=== PATIENT | male | born 1950 | race Caucasian/White ===

== ENCOUNTER → 2022-08-30 10:46 | Outpatient (BNVA) | payer MEDICARE, OTHER, SELFPAY | PROVIDERS: PCP Internal Medicine; Visit Provider Nurse Practitioner Family | DX: R39.12 Poor urinary stream (principal); R97.20 Elevated prostate specific antigen [PSA] | CPT/HCPCS: 99202 ==

== ENCOUNTER 2022-09-02 11:27 | Outpatient (REF) | payer MEDICARE, OTHER, SELFPAY ==
--- NOTE | ~2022-09-02 | US_ITS ---
EXAMINATION: US RETROPERITONEAL COMPLETE (RENAL) CLINICAL INFORMATION: Elevated prostate-specific antigen. Poor urinary stream. COMPARISON: None available. TECHNIQUE: Real-time imaging of the kidneys and bladder. FINDINGS: RIGHT KIDNEY: 9.9 x 4.5 x 5.4 cm (SAG x AP x TRV). The kidney is normal in size, contour, and echogenicity. Renal cortical thickness is normal. No renal calculi or hydronephrosis. There is anechoic cyst in midpole measuring 1.1 x 1.2 x 1.1 cm. LEFT KIDNEY: 10.3 x 5.1 x 5.4 cm (SAG x AP x TRV). The kidney is normal in size, contour, and echogenicity. Renal cortical thickness is normal. No renal calculi or hydronephrosis. There is anechoic cyst lower pole measuring 4.3 x 3.7 x 3.5 cm. BLADDER: Well distended and normal. Bilateral ureteral jets are demonstrated. Prevoid bladder volume is 509 mL. Postvoid bladder volume is 39.1 mL. Enlarged prostate, volume 44.4 mL. US/US retroperitoneal comp IMPRESSION: Bilateral renal cysts. No echogenic stones or hydronephrosis. Small postvoid bladder volume.
== END 2022-09-02 11:28 | disposition home or self-care (01) ==
LOC: HO.HMGCX 11:27
PROVIDERS: PCP Internal Medicine; Visit Provider Nurse Practitioner Family
DX: R39.12 Poor urinary stream (principal); R97.20 Elevated prostate specific antigen [PSA]
CPT/HCPCS: 76770

== ENCOUNTER 2022-09-28 12:03 | Outpatient (REF) | payer MEDICARE, OTHER, SELFPAY ==
[2022-09-28 14:18] LABS: PSA,Total (Free>4and<10) 4.82 ng/mL (0.00-4.00)
[2022-09-30 12:53] LABS: Percent Free Prostate Spec Ag 24 % (calc) (>25); Prostate Specific Ag Total 4.1 ng/mL (< OR = 4.0)
== END 2022-09-28 12:04 | disposition home or self-care (01) ==
LOC: HO.10HDL 12:03
PROVIDERS: Visit Provider Nurse Practitioner Family
DX: R39.12 Poor urinary stream (principal); R97.20 Elevated prostate specific antigen [PSA]; Z12.5 Encounter for screening for malignant neoplasm of prostate
CPT/HCPCS: 36415; 84153; 84154

== ENCOUNTER → 2022-10-13 13:23 | Outpatient (BNVA) | payer MEDICARE, OTHER, SELFPAY | PROVIDERS: PCP Internal Medicine; Visit Provider Nurse Practitioner Family | DX: N28.1 Cyst of kidney, acquired (principal); N40.0 Benign prostatic hyperplasia without lower urinary tract symptoms; R39.12 Poor urinary stream; R97.20 Elevated prostate specific antigen [PSA]; Z79.82 Long term (current) use of aspirin | CPT/HCPCS: 99212 ==

== ENCOUNTER 2023-02-08 09:11 | Outpatient (REF) | payer MEDICARE, OTHER, SELFPAY ==
[2023-02-08 11:03] LABS: Prostate Specific Antigen 2.06 ng/mL (<0.05-4.0)
== END 2023-02-08 09:12 | disposition home or self-care (01) ==
LOC: HO.10HDL 09:11
PROVIDERS: Visit Provider Nurse Practitioner Family
DX: Z12.5 Encounter for screening for malignant neoplasm of prostate (principal); R97.20 Elevated prostate specific antigen [PSA]
CPT/HCPCS: 36415; 84153

== ENCOUNTER 2023-02-14 09:38 | Outpatient (AMB) | payer MEDICARE, OTHER, SELFPAY ==
--- NOTE | 2023-02-14 09:40 | A.OFFVIS_ITS ---
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 Rivera. He has a past medical history of coronary artery disease, GERD, hypercholesteremia, hypertension, and arthritis. He presents to the office today for follow-up. Of note, patient was previously seen approximately 4 months ago and was started on Finasteride. In discussion with the patient today reports to be doing and feeling well. Recent PSA results reviewed with the patient today... PSA's 07/28--4.3 09/25-- 4.1 Percent free 24 02/25--2.1 Previous workup has included retroperitoneal ultrasound that noted bilateral kidneys with no renal calculi or hydronephrosis. Bilateral renal cysts. The bladder is well distended and normal. Bilateral ureteral jets are demonstrated. Pre void bladder volume is 500 mL. Postvoid bladder volume is 40 mL. Prostate volume 44 mL. When asked patient denies any bothersome urinary issues or concerns at this time. He denies urinary urgency, urinary frequency, incontinence, nocturia, hematuria, dysuria, foul smelling urine, changes to urinary stream, flank pain, fever, and or chills. He is happy with his current voiding parameters. 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 He otherwise offers no other issues or concerns at this time. [facility] Medical History CAD (coronary artery disease) GERD (gastroesophageal reflux disease) High cholesterol Hypertension Arthritis Review of Systems Const Reports no additional complaints Eyes Reports no additional complaints ENT Reports no additional complaints Card Reports as per HPI Resp Reports no additional complaints GI Reports as per HPI Reports as per HPI Musc Reports as per HPI Neuro Reports no additional complaints Psych Reports no additional complaints Endo Reports no additional complaints Kash/Lymph Reports no additional complaints Aller/Immun Reports no additional complaints Physical Exam Const General: cooperative, healthy appearing, comfortable, no acute distress, well developed, alert and awake Orientation/consciousness: patient oriented x3 Limitations: no limitations HEENT Head: Yes normal to inspection, Yes normocephalic and Yes atraumatic Ears: hearing grossly normal bilaterally Eyes General: appearance normal, both eyes and all related structures Neck Neck: Yes normal visual inspection and Yes trachea midline Chest Chest palpation & inspection: normal inspection of the chest Resp Effort & Inspection: normal respiratory effort and able to speak in complete sentences Cardio Rate: regular rate GI Inspection: Yes normal to inspection Rectal Exam - Male: Yes deferred General: Yes no CVA tenderness Back/Spine/Pelvis Back: no CVA tenderness Skin General skin exam: no rashes or lesions noted Neuro General: patient oriented x3 Extrem General: Yes normal to inspection Psych Appearance: grossly normal and well kempt Mental Status: mental status grossly normal Speech and movement: Normal speech and movement present and Clear speech present Affect: normal affect Attitude: cooperative Thought process: Normal thought process present Thought content: Normal thought content present Insight: Good insight present (Psych) Judgement: Good judgement present (Psych) Results AMB Urinalysis, Automated UA Leukoctes 0 Susanne/uL Last Edit by [employer]raquel on 02/14/23 09:52 UA Nitrite Last Edit by [employer] Priscilla on 02/14/23 09:52 UA Urobilinogen 0.2 mg/dL Last Edit by [employer] Priscilla on 02/14/23 09:52 UA Protein 0 mg/dL Last Edit by [employer] on 02/14/23 09:52 UA pH 6.0 Last Edit by [employer] on 02/14/23 09:52 UA Blood 0 Alton/uL Last Edit by [employer] on 02/14/23 09:52 UA Specific [place] 1.025 Last Edit by [employer] on 02/14/23 09:52 UA Ketone Last Edit by [employer] on 02/14/23 09:52 UA Bilirubin 0 mg/dL Last Edit by [employer] on 02/14/23 09:52 UA Glucose 0 mg/dL Last Edit by Wilian Wells on 02/14/23 09:52 Results Reviewed Results Reviewed: Laboratory Last Values Urine pH (Auto) 6.0 02/14/23 09:43 Specific [place] (Auto) 1.025 02/14/23 09:43 Urine Protein (Auto) 0 mg/dL 02/14/23 09:43 Glucose (UA)(Auto) 0 mg/dL 02/14/23 09:43 Urine Blood (Auto) 0 [place]/uL 02/14/23 09:43 Urine Bilirubin (Auto) 0 mg/dL 02/14/23 09:43 Urine Urobilinogen (Auto) 0.2 mg/dL 02/14/23 09:43 Leukocyte Esterase (Auto) 0 Susanne/uL 02/14/23 09:43 Assessment & Plan Assessment & Plan (1) Enlarged prostate: Code(s): N40.0 - Benign prostatic hyperplasia without lower urinary tract symptoms (2) Elevated PSA: Code(s): R97.20 - Elevated prostate specific antigen [PSA] Plan In office urinalysis results reviewed with the patient today; as noted above. Recent PSA results reviewed with the patient today. Continue finasteride as discussed and prescribed. Patient denies any bothersome urinary issues or concerns at this time. PSA in 1 year. Follow-up in 1 year with lab to be completed prior; or sooner with any issues, concerns, and or questions. Orders: Orders Prostate Specific Antigen 364 Days N40.0 - Benign prostatic hyperplasia without lower urinary tract symptoms, R97.20 - Elevated prostate specific antigen [PSA] AMB Urinalysis Automated Today Z13.9 - Encounter for screening, unspecified Patient Instructions: The patient had an opportunity to ask questions regarding the treatment plan. All questions were answered. Physical exam, labs, and imaging were discussed and reviewed in detail. As well as risks, benefits, and discussion of treatment choices. No major barriers to understanding were identified. The patient expressed understanding and agreement with the above treatment plan. The patient was made aware they should contact our office by phone for worsening of their current condition, the appearance of new symptoms, or with any questions or concerns. Compliance is encouraged with any medications and follow up testing that is ordered. It is a privilege to be allowed the opportunity to participate in? your urological care.? Again, if you have any questions or concerns If you have any questions or concerns please do not hesitate to contact me. The office is [phone]. This note is constructed using voice recognition software. While every effort has been made to ensure accuracy tapper bit errors may have been included. Yours sincerely, DEWAYNE Gottlieb Coding Level of Care Code Est Pt Level 3 (98987) Diagnoses Enlarged prostate N40.0 Elevated PSA R97.20
== END 2023-02-14 10:17 | disposition home or self-care (01) ==
PROVIDERS: PCP Internal Medicine; Visit Provider Nurse Practitioner Family
DX: N40.0 Benign prostatic hyperplasia without lower urinary tract symptoms (principal); R97.20 Elevated prostate specific antigen [PSA]
CPT/HCPCS: 99213

== ENCOUNTER → 2023-02-14 09:38 | Outpatient (BNVA) | payer MEDICARE, OTHER, SELFPAY | PROVIDERS: Visit Provider Nurse Practitioner Family | DX: N40.0 Benign prostatic hyperplasia without lower urinary tract symptoms (principal); R97.20 Elevated prostate specific antigen [PSA] | CPT/HCPCS: 81003; 99212 ==

== ENCOUNTER 2023-06-12 15:51 | Outpatient (REF) | payer MEDICARE, OTHER, SELFPAY ==
--- NOTE | ~2023-06-12 | XR_ITS ---
EXAMINATION: XR CHEST CLINICAL INFORMATION: Shortness of breath, history of recent Covid 19. COMPARISON: None available. TECHNIQUE: 2 views of the chest were obtained. FINDINGS: Normal heart size. Mild central peribronchial wall thickening. Subtle streaky opacities in the left lower lobe. No focal consolidation. No pleural effusion or pneumothorax. No acute osseous findings. Visualized upper abdomen is within normal limits. XR/XR chest 2V IMPRESSION: 1. Mild central peribronchial wall thickening that could be seen with small airways disease. 2. Minimal streaky opacities in the retrocardiac region favored to represent subsegmental atelectasis or scarring.
== END 2023-06-12 15:52 | disposition home or self-care (01) ==
LOC: HO.HMGCX 15:51
PROVIDERS: PCP Internal Medicine; Visit Provider Internal Medicine
DX: R06.02 Shortness of breath (principal); Z86.16 Personal history of COVID-19
CPT/HCPCS: 71046

== ENCOUNTER 2024-02-12 11:48 | Outpatient (REF) | payer MEDICARE, OTHER, SELFPAY ==
[2024-02-12 14:10] LABS: Prostate Specific Antigen 1.34 ng/mL (<0.05-4.0)
== END 2024-02-12 11:49 | disposition home or self-care (01) ==
LOC: HO.10HDL 11:48
PROVIDERS: Visit Provider Nurse Practitioner Family
DX: Z12.5 Encounter for screening for malignant neoplasm of prostate (principal); N40.0 Benign prostatic hyperplasia without lower urinary tract symptoms; R97.20 Elevated prostate specific antigen [PSA]
CPT/HCPCS: 36415; 84153

== ENCOUNTER 2024-02-14 09:24 | Outpatient (AMB) | payer MEDICARE, OTHER, SELFPAY ==
--- NOTE | 2024-02-14 09:24 | A.OFFVIS_ITS ---
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- aspirin 81 mg PO DAILY atorvastatin 80 mg PO DAILY ezetimibe 10 mg PO DAILY finasteride 5 mg PO DAILY 90 days isosorbide mononitrate ER 30 mg PO DAILY nitroglycerin 0.4 mg sublingual omeprazole 20 mg PO BID HPI Comments Details: Wyatt is a pleasant 73-year-old male patient of Dr. Rivera. He has a past medical history of coronary artery disease, GERD, hypercholesteremia, hypertension, and arthritis. He presents to the office today for follow-up of his elevated PSA. In discussion with the patient today reports to be doing and feeling well. He reports since his last office visit here approximately 1 year ago has been doing and feeling well. He denies any bothersome urinary issues or concerns. Reports compliance with finasteride 5 mg daily. Recent PSA results reviewed with the patient today as noted and trended below. PSA's 07/28 4.3, 09/25 4.1 Percent free , 02/25 2.1, 02/26 1.3 Previous workup has included retroperitoneal ultrasound that noted bilateral kidneys with no renal calculi or hydronephrosis. Bilateral renal cysts. The bladder is well distended and normal. Bilateral ureteral jets are demonstrated. Pre void bladder volume is 500 mL. Postvoid bladder volume is 40 mL. Prostate volume 44 mL. When asked patient denies any bothersome urinary issues or concerns at this time. He denies urinary urgency, urinary frequency, incontinence, nocturia, hematuria, dysuria, foul smelling urine, changes to urinary stream, flank pain, fever, and or chills. He is happy with his current voiding parameters. 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 In office urinalysis results reviewed with the patient today. PVR 46 mL He also discusses his daughters TBI at the age of 1919 years old. He otherwise offers no other issues or concerns at this time. [facility], [facility] Medical History CAD (coronary artery disease) GERD (gastroesophageal reflux disease) High cholesterol Hypertension Arthritis Review of Systems Const Reports no additional complaints Eyes Reports no additional complaints ENT Reports no additional complaints Card Reports as per HPI Resp Reports no additional complaints GI Reports as per HPI Reports as per HPI Musc Reports as per HPI Neuro Reports no additional complaints Psych Reports no additional complaints Endo Reports no additional complaints Kash/Lymph Reports no additional complaints Aller/Immun Reports no additional complaints Physical Exam Const General: cooperative, healthy appearing, comfortable, no acute distress, well developed, alert and awake Orientation/consciousness: patient oriented x3 Limitations: no limitations HEENT Head: Yes normal to inspection, Yes normocephalic and Yes atraumatic Ears: hearing grossly normal bilaterally Eyes General: appearance normal, both eyes and all related structures Neck Neck: Yes normal visual inspection and Yes trachea midline Chest Chest palpation & inspection: normal inspection of the chest Resp Effort & Inspection: normal respiratory effort and able to speak in complete sentences Cardio Rate: regular rate GI Inspection: Yes normal to inspection Rectal Exam - Male: Yes deferred General: Yes no CVA tenderness Back/Spine/Pelvis Back: no CVA tenderness Skin General skin exam: no rashes or lesions noted Neuro General: patient oriented x3 Extrem General: Yes normal to inspection Psych Appearance: grossly normal and well kempt Mental Status: mental status grossly normal Speech and movement: Normal speech and movement present and Clear speech present Affect: normal affect Attitude: cooperative Thought process: Normal thought process present Thought content: Normal thought content present Insight: Good insight present (Psych) Judgement: Good judgement present (Psych) Office Procedures Post Void Residual Post Residual Void Post Void Residual (PVR): 46 [id number] Void Residual by ultrasound Results AMB Urinalysis, Automated UA Leukoctes 0 Susanne/uL Last Edit by Wilian Wells on 02/14/24 09:41 UA Nitrite Last Edit by Wilian Wells on 02/14/24 09:41 UA Urobilinogen 0.2 mg/dL Last Edit by Wilian Wells on 02/14/24 09:41 UA Protein 0 mg/dL Last Edit by Wilian Wells on 02/14/24 09:41 UA pH 6.0 Last Edit by Wilian Wells on 02/14/24 09:41 UA Blood 0 Alton/uL Last Edit by Wilian Chengraquel on 02/14/24 09:41 UA Specific [place] 1.010 Last Edit by [employer] Chengraquel on 02/14/24 09:41 UA Ketone Last Edit by Wilian Chengraquel on 02/14/24 09:41 UA Bilirubin 0 mg/dL Last Edit by Wilian Chengraquel on 02/14/24 09:41 UA Glucose 0 mg/dL Last Edit by Wilian Chengraquel on 02/14/24 09:41 Results Reviewed Results Reviewed: Laboratory Last Values Urine pH (Auto) 6.0 02/14/24 09:31 Specific [place] (Auto) 1.010 02/14/24 09:31 Urine Protein (Auto) 0 mg/dL 02/14/24 09:31 Glucose (UA)(Auto) 0 mg/dL 02/14/24 09:31 Urine Blood (Auto) 0 [place]/uL 02/14/24 09:31 Urine Bilirubin (Auto) 0 mg/dL 02/14/24 09:31 Urine Urobilinogen (Auto) 0.2 mg/dL 02/14/24 09:31 Leukocyte Esterase (Auto) 0 Susanne/uL 02/14/24 09:31 Assessment & Plan Assessment & Plan (1) Enlarged prostate: Code(s): N40.0 - Benign prostatic hyperplasia without lower urinary tract symptoms Category: Medical (2) Elevated PSA: Code(s): R97.20 - Elevated prostate specific antigen [PSA] Category: Medical Plan In office urinalysis results reviewed with the patient today; as noted above. PVR 46 mL Recent PSA results reviewed with the patient today. Continue finasteride as discussed and prescribed; discussed decreasing finasteride to 3 times per week Patient denies any bothersome urinary issues or concerns at this time. He is happy with his current voiding parameters. PSA in 1 year. Follow-up in 1 year with lab to be completed prior; or sooner with any issues, concerns, and or questions. Orders: Orders AMB Urinalysis Automated Today Z13.9 - Encounter for screening, unspecified AMB Post Void Residual by ultrasound Today R39.12 - Poor urinary stream Prostate Specific Antigen 1 Year N40.0 - Benign prostatic hyperplasia without lower urinary tract symptoms, R97.20 - Elevated prostate specific antigen [PSA] Medications: Changed From finasteride 5 mg PO DAILY 90 days 90 tabs 2RF N13.8 - Other obstructive and reflux uropathy, N40.1 - Benign prostatic hyperplasia with lower urinary tract symptoms, R33.9 - Retention of urine, unspecified To finasteride 5 mg PO .MWF 90 days 45 tabs 2RF N13.8 - Other obstructive and reflux uropathy, N40.1 - Benign prostatic hyperplasia with lower urinary tract symptoms, R33.9 - Retention of urine, unspecified Patient Instructions: The patient had an opportunity to ask questions regarding the treatment plan. All questions were answered. Physical exam, labs, and imaging were discussed and reviewed in detail. As well as risks, benefits, and discussion of treatment choices. No major barriers to understanding were identified. The patient expressed understanding and agreement with the above treatment plan. The patient was made aware they should contact our office by phone for worsening of their current condition, the appearance of new symptoms, or with any questions or concerns. Compliance is encouraged with any medications and follow up testing that is ordered. It is a privilege to be allowed the opportunity to participate in? your urological care.? Again, if you have any questions or concerns If you have any questions or concerns please do not hesitate to contact me. The office is [phone]. This note is constructed using voice recognition software. While every effort has been made to ensure accuracy hand spring repairer helper errors may have been included. Yours sincerely, DEWAYNE Gottlieb Coding Level of Care Code Est Pt Level 3 (87660) Diagnoses Enlarged prostate N40.0 Elevated PSA R97.20 CPT Codes Post Residual Void - PVR CPT Code: 12413-Dgjz Void Residual by ultrasound ([id number])
== END 2024-02-14 10:30 | disposition home or self-care (01) ==
PROVIDERS: PCP Internal Medicine; Visit Provider Nurse Practitioner Family
DX: N40.0 Benign prostatic hyperplasia without lower urinary tract symptoms (principal); R97.20 Elevated prostate specific antigen [PSA]; Z13.9 Encounter for screening, unspecified
CPT/HCPCS: 99213

== ENCOUNTER → 2024-02-14 09:24 | Outpatient (BNVA) | payer MEDICARE, OTHER, SELFPAY | PROVIDERS: PCP Internal Medicine; Visit Provider Nurse Practitioner Family | DX: R97.20 Elevated prostate specific antigen [PSA] (principal); N40.1 Benign prostatic hyperplasia with lower urinary tract symptoms; R39.12 Poor urinary stream; N13.8 Other obstructive and reflux uropathy; R33.8 Other retention of urine | CPT/HCPCS: 51798; 81003; 99212 ==

== ENCOUNTER 2024-06-10 14:04 | Outpatient (REF) | payer MEDICARE, OTHER, SELFPAY ==
--- NOTE | ~2024-06-10 | XR_ITS ---
EXAMINATION: XR CHEST 2 VIEWS HISTORY: COUGH, R/O PNA COMPARISON: Comparison is made with the prior examination dated 06/12/2023. FINDINGS: PA and lateral views of the chest are submitted. The lungs are expanded and clear. There is no pleural effusion, pneumothorax, or pulmonary vascular congestion. The heart is normal in size. The bones are intact. XR/XR chest 2V IMPRESSION: No acute cardiopulmonary abnormality. Electronically signed by: Matthew Woodward MD 06/10/2024 03:10 PM MARILIN
== END 2024-06-10 14:05 | disposition home or self-care (01) ==
LOC: HO.HMGCX 14:04
PROVIDERS: PCP Internal Medicine; Visit Provider Internal Medicine
DX: R05.9 Cough, unspecified (principal)
CPT/HCPCS: 71046

== ENCOUNTER → 2024-06-10 14:10 | Outpatient (BNV) | payer MEDICARE, OTHER, SELFPAY | PROVIDERS: PCP Internal Medicine; Visit Provider Radiology Diagnostic Radiology | DX: R05.9 Cough, unspecified (principal) | CPT/HCPCS: 71046 ==

== ENCOUNTER 2024-08-08 09:49 | Outpatient (REF) | payer MEDICARE, OTHER, SELFPAY ==
--- NOTE | ~2024-08-08 | CT_ITS ---
CLINICAL HISTORY: STREAKY OPACITY LLL CT chest without contrast Comparison: None Findings: The heart is normal size. Moderate to heavy coronary calcium. Nonaneurysmal aorta. No adenopathy. Decompressed esophagus. Mild gynecomastia. No axillary adenopathy or thyroid nodules. The visualized thyroid and mediastinum are unremarkable. The lungs are clear. Mild basilar hypoventilatory change. 1.3 cm cysts in the left hepatic lobe. Upper abdomen is otherwise unremarkable. The bones are intact. IMPRESSION: 1. No acute cardiopulmonary disease. 2. Moderate to heavy coronary calcium. This document has been electronically signed by: Augusta Randhawa MD on 08/09/2024 08:46:54
== END 2024-08-08 09:50 | disposition home or self-care (01) ==
LOC: HO.CT 09:49
PROVIDERS: PCP Internal Medicine; Visit Provider Internal Medicine
DX: R91.8 Other nonspecific abnormal finding of lung field (principal)
CPT/HCPCS: 71250

== ENCOUNTER → 2024-08-08 10:00 | Outpatient (BNV) | payer MEDICARE, OTHER, SELFPAY | PROVIDERS: PCP Internal Medicine; Visit Provider Radiology Diagnostic Radiology | DX: I25.84 Coronary atherosclerosis due to calcified coronary lesion (principal) | CPT/HCPCS: 71250 ==

== ENCOUNTER 2024-11-26 13:26 | Outpatient (AMB) | payer MEDICARE, OTHER, SELFPAY ==
--- NOTE | 2024-11-26 13:31 | A.OFFPC_ITS ---
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: No Accompanied by: Self / Same As Patient Allergies acetaminophen (From Tylenol PM) Allergy (Mild, Verified 11/26/24 13:58) Unknown diphenhydramine (From Tylenol PM) Allergy (Mild, Verified 11/26/24 13:58) Unknown Tobacco use date assessed: 11/26/24 Fall risk assessment: No Falls in past year Last assessed Fall Risk: 11/26/24 Dental Screening Dental Screen Date: 11/26/24 Did you have a dental visit in the last 12 months?: Yes Did you have a dental problem in the last 6 months where you did not have access to dental care?: No Was dental information given to patient?: Patient has dentist [facility] Medical History (Updated 11/26/24 @ 14:28 by James Grijalva MD) CAD (coronary artery disease) GERD (gastroesophageal reflux disease) High cholesterol Hypertension Arthritis Surgical History History of esophagogastroduodenoscopy (EGD) (~02/10/14) History of colonoscopy (~02/10/14) Family History (Updated 11/26/24 @ 13:32 by VAUGHN Marquis) Father No problems noted. Mother No problems noted. Social History (Updated 11/26/24 @ 14:00 by VAUGHN Marquis) Housing: House Alcohol intake: current Alcohol intake frequency: holidays/special occasions only Patient Tobacco Use Status: Never used Tobacco service: No Current occupational status: retired Cognitive needs: No Hearing needs: No Vision needs: Yes (rx glasses) Questionnaire PHQ-9 Over the last 2 weeks, how often have you been bothered by any of the following problems? 1. Little interest or pleasure in doing things: not at all 2. Feeling down, depressed, or hopeless: not at all 3. Trouble falling or staying asleep, or sleeping too much: not at all 4. Feeling tired or having little energy: not at all 5. Poor appetite or overeating: not at all 6. Feeling bad about yourself - or that you are a failure or have let yourself or your family down: not at all 7. Trouble concentrating on things, such as reading the newspaper or watching television: not at all 8. Moving or speaking so slowly that other people could have noticed. Or the opposite - being so fidgety or restless that you have been moving around a lot more than usual: not at all 9. Thoughts that you would be better off or of hurting yourself in some way: not at all Total score: 0 Source: Developed by Drs. Matthew Carr, Sierra Oswald, Kristian Chester and colleagues, with an educational jennifer from [employer]. Thrive Questionnaire Date Thrive assessed: 11/26/24 I am a: Patient What is your living situation today?: I have a steady place to live Within the past 12 months, did the food you bought not last and you didn't have the money to get more?: Never true Within the past 12 months, did you worry whether your food would run out before you got money to buy more?: Never true Do you have trouble paying for medicines?: No Do you have trouble getting transportation to medical appointments?: No Do you have trouble paying your heating and electricity bill?: No Do you have trouble taking care of your child, family member or friend?: No Do you have trouble with day-to-day activities such as bathing, preparing meals, shopping, managing finances, etc.?: No Are you currently unemployed and looking for a job?: No Are you interested in more education?: No Please select the resources that you would like help with: None THRIVE Score: 0 AUDIT C Alcohol Use Questionnaire (AUDIT-C) 1. How often do you have a drink containing alcohol?: Monthly or less 2. How many drinks containing alcohol do you have on a typical day when you are drinking?: 1 or 2 3. How often do you have six or more drinks on one occasion?: Never Total Score: 1 OLGA-7 AMB Questionnaire OLAG-7 Date OLGA - 7 assessed: 11/26/24 Feeling nervous, anxious, or on edge: 0 = Not at all Not being able to stop or control worryin = Not at all Worrying too much about different things: 0 = Not at all Trouble relaxin = Not at all Being so restless that it is hard to sit still: 0 = Not at all Becoming easily annoyed or irritable: 0 = Not at all Feeling afraid as if something awful might happen: 0 = Not at all Total OLGA-7 score (0-4 normal; 5-9 mild; 10-14 moderate; 15-21 severe): 0 Source: Developed by Drs. Matthew Carr, Sierra Oswald, Kristian Chester and colleagues, with an educational jennifer from [employer]. Physical exam (Primary Care) Vital Signs: Last Vital Signs Temp 98.1 F 11/26/24 13:55 Pulse 74 11/26/24 13:55 Resp 16 11/26/24 13:55 BP 152/84 H 11/26/24 13:55 Pulse Ox 98 11/26/24 13:55 Oxygen Delivery Method Room Air 11/26/24 13:55 BMI result Body Mass Index 30.6 Tobacco/Smoking Status: Tobacco use Status Tobacco use date assessed 11/26/24 11/26/24 13:32 Patient Tobacco Use Status Never used Tobacco 11/26/24 14:00 PHQ-9: PHQ-9 Score PHQ-9: Total score 0 11/26/24 14:00 Thrive Assessment: Date of Thrive Assessment Date Thrive assessed 11/26/24 11/26/24 13:32 Coding Level of Care Code New Pt Level 4 (33517) Complex EM visit Add On G2211 Diagnoses Mastitis, left, acute N61.0 Hypertension I10 Assessment & Plan Assessment & Plan (1) Mastitis, left, acute: Code(s): N61.0 - Mastitis without abscess Plan: Will get diagnostic us and mammogram. (2) Hypertension: Code(s): I10 - Essential (primary) hypertension Category: Medical Plan: BP in range. Continue current meds Plan History of Present Illness - The patient is a 74-year-old male presenting with evaluation of a lump behind the ear and breast pain. - The lump behind the ear has been present for approximately a year and a half, initially noted as smaller and dismissed by a previous physician. - The lump has grown over time and is described as solid upon examination, diagnosed as a sebaceous cyst. - The patient reports mild pain in the left breast, particularly when pressure is applied to the nipple, with no associated discharge. - The breast pain has been present for 8 months to a year, with no palpable masses detected during examination. - The patient has a history of heart problems and has been under the care of a clinical biostatistician for 20 years, with three different incidents reported. - The patient experienced COVID-19 in June, followed by a respiratory virus and recurrent pneumonia, leading to breathing difficulties that have since improved. 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 - Preventative care includes a planned colonoscopy, with a previous appointment canceled due to illness. 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 - Exercise: Increased physical activity has contributed to recent weight loss. Review of Systems - Integumentary: Reports lump behind ear, denies any associated symptoms. - Breast: Reports mild pain in left breast, denies nipple discharge. - Cardiovascular: Reports history of heart problems, denies current symptoms. - Respiratory: Reports past breathing difficulties due to pneumonia, currently improved. Physical Exam General: Cooperative and healthy appearing Nutritional Appearance: Well nourished Orientation/consciousness: Patient oriented x3 Limitations: No limitations Head: Normal to inspection General: Appearance normal, both eyes and all related structures Neck: Normal visual inspection Chest: Normal palpation of entire chest wall Respiratory: Residual breathing problem improving after recurring pneumonia. ormal respiratory effort Neurology: Patient oriented x3. Results Plan 1. Sebaceous Cyst - Plan: Observation recommended, surgical removal offered if desired. 2. Breast Pain - Plan: Ultrasound and mammogram of left breast recommended to rule out malignancy. 3. Heart Problems - Plan: Continue follow-up with clinical biostatistician, no new interventions discussed. 4. History Of Pneumonia - Plan: No active treatment required as symptoms have resolved. 5. Preventative Care: Colonoscopy - Plan: Schedule colonoscopy, previous appointment canceled due to illness. Discussion Notes I discussed with the patient that the lump behind the ear is a sebaceous cyst and is not serious, offering the option of surgical removal if desired. We also discussed the importance of ruling out breast cancer in males, recommending an ultrasound and mammogram for the left breast. I advised continuing follow-up with the clinical biostatistician for heart problems and noted that no active treatment is needed for the resolved pneumonia. We agreed to schedule a colonoscopy as part of preventative care. Patient Instructions - Monitor the lump behind the ear for any changes. - Schedule and attend the recommended ultrasound and mammogram for the left breast. - Continue regular follow-ups with your clinical biostatistician. - Schedule a colonoscopy as discussed. Orders: Orders MM diagnostic mammo BI Today N61.0 - Mastitis without abscess Liver Panel Today I10 - Essential (primary) hypertension US breast LT limited Today N61.0 - Mastitis without abscess Basic Metabolic Panel Today I10 - Essential (primary) hypertension Complete Blood Count no Diff Today I10 - Essential (primary) hypertension Lipid Panel Today I10 - Essential (primary) hypertension Thyroid Stimulating Hormone Today I10 - Essential (primary) hypertension UA and rflx microscopic Today I10 - Essential (primary) hypertension Prostate Specific Antigen Scr Today I10 - Essential (primary) hypertension
[2024-11-26 13:55] VITALS: BP 152/84; PULSE 74; RESP 16; TEMP 36.7; O2SAT 98; BMI 30.6
--- OUTSIDE RECORDS SUMMARY | 2024-11-26 15:30 | XMS_ITS | Patient Health Record ---
Author Organization [facility] Address [address] [place] [address] Care Team Providers Care Supervisor Esters And Emulsifiers Name Role Phone Dean Rivera MD Primary Care Provider UnavailMatthew Spence [phone] Allergies Allergen (clinical drug ingredient) Drug/Non Drug Allergy documented on EMR Reaction Allergy Type Onset Date Status Tylenol/Codeine #3 Unknown Drug Allergy Active Reason For Referral No Information Medications Medication SIG (Take, Route, Frequency, Duration) Notes Start Date End Date Status Lisinopril 2.5 MG 1 tablet Orally Once a day 01/14/2014 Active Aspir-81 81 MG 1 tablet Orally Once a day 01/14/2014 Active ZyrTEC Active Sulindac 150 MG 1 tablet with food O rally QD as needed Active Atorvastatin Calcium 80 MG 1 tablet Oral ly Once a day Active Omeprazole 20 MG 1 capsule Orally twi ce a day for 90 Active Omeprazole 20 TAKE 1 CAPSULE BY [facility] EVERY MORNING for 90 Active Brilinta 90 MG 1 tablet Orally Active Immunizations Vaccine Route Administration Date Status Comme nts Influenza Unknown 03/05/2019 Administered Problems Problem Type SNOMED Code ICD Code Onset Dates Problem Status W/U Status Risk Notes Problem 187736263 Encounter for screening for malignant neoplasm of colon (Z12.11) Active confirmed Problem 597943805 History of adenomatous polyp of colon (Z86.010) Active confirmed Problem 692682729 Gastroesophageal reflux disease with esophagitis (K21.0) Active confirmed Problem 098515564 Barretts esophag us without dysplasia (K22.70) Active confirmed Problem 477018352 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 [place] [address] [id number] BEVERLY OROSCO Self - patient is the insured Medical (General) History Medical History History ICD Code Denies UT,DM,CVA,Lung disease,renal dise ase Coronary artery disease--2 stents placed in 2004 Hypertension Negative screening colonoscopy in 01/[address] Longoria Hyperlipidemia GERD--EGD in 02/2014-erosive esophagitis, small area of Camejo's without dysplasia, small HH Tubular adenoma removed in 02/2014 with s creening colonoscopy UT in 06/2018 with placement of a single stent Surgical History Surgery Date(Month/Year) Right rotator cuff Left knee arthroscopy Lower back--spinal stenosis
== END 2024-11-26 14:24 | disposition home or self-care (01) ==
LOC: HO.HMCSH 13:26
PROVIDERS: PCP Internal Medicine; Visit Provider Internal Medicine
DX: N61.0 Mastitis without abscess (principal); I10 Essential (primary) hypertension

== ENCOUNTER → 2024-11-26 13:26 | Outpatient (BNVA) | payer MEDICARE, OTHER, SELFPAY | PROVIDERS: PCP Internal Medicine; Visit Provider Internal Medicine | DX: N61.0 Mastitis without abscess (principal); I10 Essential (primary) hypertension | CPT/HCPCS: 99202 ==

== ENCOUNTER 2025-01-06 09:13 | Outpatient (REF) | payer MEDICARE, OTHER, SELFPAY ==
--- NOTE | ~2025-01-06 | MM_ITS ---
EXAMINATIONS: 1. MM DIAGNOSTIC DIGITAL BREAST TOMOSYNTHESIS, BILATERAL 2. Targeted ultrasound of the left breast CLINICAL INFORMATION: - tenderness over the nipple area, no lump palpable; Additional Notes/Special Instructions-tenderness over the nipple area, no lump palpable; Reason for Exam-N61.0 - Mastitis without abscess - According to the patient, left breast pain for over one year without significant changes. COMPARISON: Chest CT on August 08, 2024. TECHNIQUE: Digital breast tomosynthesis is performed in both the craniocaudal and mediolateral oblique views along with computer-aided detection (CAD). Synthesized 2D images are generated from the tomosynthesis. Triangular skin marker was placed at the location of the pain over the left nipple. FINDINGS: BREAST COMPOSITION: There are scattered areas of fibroglandular density (ACR BI-RADS breast composition Category b). RIGHT BREAST: Retroareolar density typical of gynecomastia. No significant masses, suspicious calcifications or other abnormalities are seen. LEFT BREAST: Retroareolar density typical of gynecomastia, minimally more prominent than contralateral side. No significant masses, suspicious calcifications or other abnormalities are seen. Targeted ultrasound of the left breast was performed at the location of the pain. Survey throughout the nipple area and retroareolar region shows findings typical of gynecomastia. No fluid collections, suspicious findings or abnormal vascularity on the color Doppler evaluation seen. MM/MM tomosynthesis diagnostic BI IMPRESSION: RIGHT BREAST: Findings typical of gynecomastia. Benign, no mammographic evidence of malignancy. LEFT BREAST: Findings typical of gynecomastia, minimally more prominent than the contralateral side. No fluid collection or abnormal vascularity seen on the ultrasound evaluation of the area of concern. Benign, no evidence of malignancy. Clinical follow-up is recommended. ASSESSMENT: BI-RADS 2 - Benign Findings RECOMMENDATION: Clinical management Results were provided to the patient at time of visit by the technologist. Electronically signed by: Gautam Cortes MD 01/06/2025 11:21 AM EDT
--- OUTSIDE RECORDS SUMMARY | 2025-01-06 09:37 | XMS_ITS | Patient Health Record ---
Author Organization [facility] Address [address] [place] [address] Care Team Providers Care Pari Mutuel Ticket Cashier Name Role Phone TANIA TUTTLE Primary Care Provider Matthew Romero [phone] Allergies Allergen (clinical drug ingredient) Drug/Non Drug [...] Active Omeprazole 20 TAKE 1 CAPSULE BY [facility] EVERY MORNING for 90 Active Brilinta 90 MG 1 tablet Orally Active Immunizations Vaccine Route Administration Date Status Comme nts Influenza Unknown 03/05/2019 Administered Problems Problem Type SNOMED Code ICD Code Onset Dates Problem Status W/U Status Risk Notes Problem 807029179 Encounter for screening for malignant neoplasm of colon (Z12.11) Active confirmed Problem 724604504 History of adenomatous polyp of colon (Z86.010) Active confirmed Problem 424785997 Gastroesophageal reflux disease with esophagitis (K21.0) Active confirmed Problem 734993463 Barretts esophag us without dysplasia (K22.70) Active confirmed Problem 377063097 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 Plan Of Treatment Future Test Test Name Order Date UPPER GI ENDOSCOPY 01/14/2014 COLONOSCOPY 01/14/2014 UPPER GI ENDOSCOPY 04/12/2019 COLONOSCOPY 04/12/2019 Next Appt Details Provider Name:Matthew Sanches , 03/07/2025 02:40:00 PM, [address] [facility], [address], [place], [address], Insurance Providers Payer Name Payer Address Payer Phone Subscriber Number Group Number Insured Name Patient Relationship to Insured Coverage Start Date Coverage End Date MEDICARE OF [facility] [address] [place] [address] [id number] BEVERLY OROSCO Self - patient is the insured [employer] [address] [place] [phone] [id number] BEVERLY OROSCO Self - patient is the insured Medical (General) History Medical History History ICD Code Denies HI,DM,CVA,Lung disease,renal dise ase Coronary artery disease--2 stents placed in 2004 Hypertension Negative screening colonoscopy in 01/[address] Longoria Hyperlipidemia GERD--EGD in 02/2014-erosive esophagitis, small area of Camejo's without dysplasia, small HH Tubular adenoma removed in 02/2014 with s creening colonoscopy HI in 06/2018 with placement of a single stent Surgical History Surgery Date(Month/Year) Right rotator cuff Left knee arthroscopy Lower back--spinal stenosis
--- OUTSIDE RECORDS SUMMARY | 2025-01-06 09:37 | XMS_ITS | Encounter Summary ---
Author Organization [facility] Address [address] [place] [address] Phone Care Team Providers Care Supervisor Decorating Name Role Phone Dean Rivera MD Primary Care Provider [phone] Uli Mcgraw MD Unavailable [phone] James Grijalva MD Primary Care Provid er Encounter Details Date Type Department Care Team (Late st Contact Info) Description 07/22/2021 Procedure Pass Echo Lab [address] [place] [address] Social History Tobacco Use Types Packs/Day Years Used Date Smoking Tobacco: Never Smokeless Tobacco: Never Alcohol Use Standard Drinks/Week Comments Yes 0 (1 standard drink = 0.6 oz pur e alcohol) Sex and Gender Information Value Date Recorded Sex Assigned at Not on file Legal Sex Male 7:47 PM EST Gender Identity Not on file Sexual Orientation Not on file documented as of this encounter Plan of Treatment Not on file documented as of this encounter Visit Diagnoses Not on filedocumented in this encounter Care Teams Supervisor Decorating Relationship Specialty Start Date End Date Dean Rivera MD [address] [place] [address] PCP - General 03/23/17 12/10/24 James Grijalva MD [address] [place] [address] Drive [address] [place] [address] PCP - General Internal Medicine 12/11/24 Uli Mcgraw MD [address] [place] [address] [email or web address] Historical LMR Provider 03/23/17 documented as of this encounter Additional Source Comments The information contained in this document represents components of the legal health record. It is not the complete legal health record.[facility]
== END 2025-01-06 09:14 | disposition home or self-care (01) ==
LOC: HO.MAMMO 09:13
PROVIDERS: PCP Internal Medicine; Visit Provider Internal Medicine
DX: N61.0 Mastitis without abscess (principal)
CPT/HCPCS: 76642; 77062; 77066

== ENCOUNTER → 2025-01-06 09:30 | Outpatient (BNV) | payer MEDICARE, OTHER, SELFPAY | PROVIDERS: PCP Internal Medicine; Visit Provider Radiology Body Imaging | DX: N62 Hypertrophy of breast (principal) | CPT/HCPCS: 76642; 77066; G0279 ==

== ENCOUNTER 2025-02-04 08:52 | Outpatient (REF) | payer MEDICARE, OTHER, SELFPAY ==
--- OUTSIDE RECORDS SUMMARY | 2025-02-04 09:37 | XMS_ITS | Encounter Summary ---
Author Organization [facility] Address [address] [place] [address] [address] [place] [address] Phone Care Team Providers Care Fitness Leader Name Role Phone Uli Mcgraw MD Unavailable [phone] James Grijalva MD Primary Care Provid er Reason for Referral * Consultation (Within 2 weeks) - New Request Specialty Diagnoses / Procedures Referred By Mango boss Referred To Contact Pulmonary Disease Elvi Espitia DNP [address] [place] [address] Phone: tel: fax: [email or web address] [facility] [address] [place] [address] Phone: tel: Referral ID Status Reason Start Date Expiration Date V isits Requested Visits Authorized [id number] New Request 01/27/2025 01/27/2026 1 1 Encounter Details Date Type Department Care Team (Late st Contact Info) Description 01/27/2025 Orders Only [facility] [address], [address] [place] [address] Elvi Espitia DNP [address] [place] [address] Social History Tobacco Use Types Packs/Day Years Used Date Smoking Tobacco: Never Smokeless Tobacco: Never Alcohol Use Standard Drinks/Week Comments Yes 0 (1 standard drink = 0.6 oz pur e alcohol) Education Answer Date Recorded Are you interested in more education? Not on jaiden e 09/29/2022 Are you concerned about learning? Not on file 09/29/2022 No 09/29/2022 No 09/29/2022 Digital Access Answer Date Recorded No 10/29/2022 No 10/29/2022 Reliable internet access at home? Not on file 10/29/2022 Device with a working camera? Not on file Sex and Gender Information Value Date Recorded Sex Assigned at Not on file Legal Sex Male 7:47 PM EST Gender Identity Not on file Sexual Orientation Not on file documented as of this encounter Plan of Treatment Upcoming Encounters Date Type Department Care Team (Late st Contact Info) Description 03/03/2025 9:00 AM EDT Office Visit [facility] [address] [place] [address] [place] [address], [address] [place] [address] Elvi Espitia, [address] [address] 05/20/2025 1:15 PM EST Office Visit [facility] [address], [address] [place] [address] Hill Navarrete MD [address] [place] [address] Scheduled Referrals Name Type Priority Associated Diagnoses Order Schedule Ambulatory referral to [facility] Pulmonology Outpatient Referral Routine Ordered: 01/27/2025 documented as of this encounter Visit Diagnoses Not on filedocumented in this encounter Care Teams Fitness Leader Relationship Specialty Start Date End Date James Grijalva MD [address] [place] [address] PCP - General Internal Medicine 12/11/24 Uli Mcgraw MD [address] [address] Historical LMR Provider 03/23/17 documented as of this encounter Additional Source Comments The information contained in this document represents components of the legal health record. It is not the complete legal health record.[facility]
--- OUTSIDE RECORDS SUMMARY | 2025-02-04 09:37 | XMS_ITS | Encounter Summary ---
Author Organization [facility] Address [address] [place] [address] [place] [address] Phone Care Team Providers Care Pe Teacher Name Role Phone Dean Rivera MD Primary Care Provider [phone] Uli Mcgraw MD Unavailable [phone] James Grijalva MD Primary Care Provid er Encounter Details Date Type Department Care Team (Late st Contact Info) Description 07/22/2021 Procedure Pass Echo Lab [facility] [address] [address] Social History Tobacco Use Types Packs/Day Years [...] Description 03/03/2025 9:00 AM EDT Office Visit [facility] [address], [address] [place] [address] Elvi Espitia, [address] [address] 05/20/2025 1:15 PM EST Office Visit [facility] [address], [address] [place] [address] Hill Navarrete MD [address] [facility], [address] [address] [email or web address] documented as of this encounter Visit Diagnoses Not on filedocumented in this encounter Care Teams Pe Teacher Relationship Specialty Start Date End Date Dean Rivera MD [address] [place] [address] PCP - General 03/23/17 12/10/24 James Grijalva MD [address] [place] [address] PCP - General Internal Medicine 12/11/24 Uli Mcgraw MD [address] [place] [address] [email or web address] Historical LMR Provider 03/23/17 documented as of this encounter Additional Source Comments The information contained in this document represents components of the legal health record. It is not the complete legal health record.[facility]
--- OUTSIDE RECORDS SUMMARY | 2025-02-04 09:37 | XMS_ITS | Encounter Summary ---
Author Organization [facility] Address [address] [place] [address] Phone Care Team Providers Care Cra Name Role Phone Dean Rivera MD Primary Care Provider [phone] Uli Mcgraw MD Unavailable [phone] James Grijalva MD Primary Care Provid er Encounter Details Date Type Department Care Team (Late Contact Info) Description 06/26/2024 Procedure Pass Echo Lab [address] [place] [address] Social History Tobacco Use Types Packs/Day Years [...] Encounters Date Type Department Care Team (Late Contact Info) Description 03/03/2025 9:00 AM EDT Office Visit [facility] [address], [address] [place] [address] Elvi Espitia, MADDY [address] [place] [address] 05/20/2025 1:15 PM EST Office Visit [facility] [address], [address] [place] [address] Hill Navarrete MD [address] [facility], [address] [place] [address] [email or web address] documented as of this encounter Visit Diagnoses Not on filedocumented in this encounter Care Teams Cra Relationship Specialty Start Date End Date Dean Rivera MD [address] [place] [address] PCP - General 03/23/17 12/10/24 James Grijalva MD [address] [place] [address] PCP - General Internal Medicine 12/11/24 Uli Mcgraw MD [address] [place] [address] [email or web address] Historical LMR Provider 03/23/17 documented as of this encounter Additional Source Comments The information contained in this document represents components of the legal health record. It is not the complete legal health record.[facility]
--- OUTSIDE RECORDS SUMMARY | 2025-02-04 09:37 | XMS_ITS | Encounter Summary ---
Author Organization [facility] Address [address] [place] [address] [place] [address] Phone Care Team Providers Care Rotary Driller Prospecting Name Role Phone Dean Rivera MD Primary Care Provider [phone] Dean Rivera MD Unavailable [phone] Uli Mcgraw MD Unavailable [phone] James Grijalva MD Primary Care Provid er Encounter Details Date Type Department Care Team (Latest Contact Info) Description 04/07/2017 Transcribe Orders [facility] [address] [place] [address] Uli Mcgraw MD [address] [place] [address] Pure hypercholesterolemia (Primary Dx) Social History Tobacco Use Types Packs/Day Years Used Date Smoking Tobacco: Never Assessed Sex and Gender Information Value Date Recorded Sex Assigned at Not on file Legal Sex Male 7:47 PM EST Gender Identity Not on file Sexual Orientation Not on file documented as of this encounter Plan of Treatment Upcoming Encounters Date Type Department Care Team (Late st Contact Info) Description 03/03/2025 9:00 AM EDT Office Visit [facility] [address], [address] [place] [address] Elvi Espitia, [facility] [address] [place] [address] 05/20/2025 1:15 PM EST Office Visit [facility] [address] [facility] 3rd Floor, [address] [place] [address] Hill Navarrete MD [facility] [address] [place] [address] [email or web address] documented as of this encounter Results * LFTs (hepatic panel) (04/07/2017 8:40 AM EDT) ALKALINE PHOSPHATASE 50 39 - 117 U/L [facility] TOTAL BILIRUBIN 0.5 0 - 1.2 mg/dL [facility] DIRECT BILIRUBIN <0.2 0 - 0.3 mg/dL [facility] Bilirubin (Indirect) NOT CALCULATED 0 - 1.5 mg/dL [facility] AST 25 0 - 37 U/L [facility] ALT 22 0 - 40 U/L [facility] TOTAL PROTEIN 6.6 6.5 - 8.0 g/dL [facility] ALBUMIN 4.2 3.9 - 4.8 g/dL [facility] GLOBULIN 2.4 1 - 4.8 g/dL [facility] A/G Ratio 1.75 1.00 - 4.80 RATIO [facility] Blood 04/07/2017 8:40 AM EDT 04/07/2017 8:42 AM EDT us Uli Mcgraw MD LAB BLOOD ORDERABLES Edited Res ult - Final [facility] [address] [place] [address] * (ABNORMAL) Lipid panel (04/07/2017 8:40 AM EDT) HDL 46 mg/dL [facility] Comment: Interpretation: Risk Level Males Decreased >45 mg/dL Average 40-45 mg/dL Increased <40 mg/dL CHOLESTEROL 127 0 - 240 mg/dL [facility] TRIGLYCERIDES 88 30 - 160 mg/dL [facility] LDL 63 50 - 129 mg/dL [facility] Comment: LDL levels in terms of risk for coronary heart disease: <100 mg/dL: Optimal 100-129 mg/dL: Near or above optimal 130-159 mg/dL: Borderline high 160-189 mg/dL: High >190 mg/dL: Very High CARDIAC RISK RATIO 2.8(L) 3.4 - 5.0 C [facility] Blood 04/07/2017 8:40 AM EDT 04/07/2017 8:42 AM EDT Uli Mcgraw MD LAB BLOOD ORDERABLES Final Resu lt Performing Organization Address City/[facility]/ZIP Co de Phone Number [address] [address] * (ABNORMAL) Basic metabolic panel (04/07/2017 8:40 AM EDT) SODIUM 141 133 - 146 mmol/L [facility] CHLORIDE 104 96 - 108 mmol/L [facility] POTASSIUM 4.7 3.3 - 5.1 mmol/L [facility] CO2 27 21 - 35 mmol/L [facility] BUN 23(H) 6 - 19 mg/dL [facility] CREATININE 0.90 0.5 - 1.5 mg/dL [facility] GLUCOSE 101(H) 70 - 99 mg/dL [facility] CALCIUM 9.2 8.4 - 10.3 mg/dL [facility] EGFR >60 >60 mL/min/1.7 3m2 [facility] Comment:Abnormal if <60. If patient is -Faroese, multiply the result by 1.21. ANION GAP 15 10 - 20 mmol/L [facility] Blood 04/07/2017 8:40 AM EDT 04/07/2017 8:42 AM EDT Uli Mcgraw MD LAB BLOOD ORDERABLES Final Resu lt Performing Organization Address City/[facility]/ZIP Co de Phone Number [address] [address] documented in this encounter Visit Diagnoses Diagnosis Pure hypercholesterolemia- Primary documented in this encounter Care Teams [employer] Relationship Specialty Start Date End Date Dean Rivera MD [address] [place] [address] PCP - General 03/23/17 12/10/24 James Grijalva MD [address] [place] [address] PCP - General Internal Medicine 12/11/24 Dean Rivera MD [address] [place] [address] Historical LMR Provider 03/23/17 2 Uli Mcgraw MD [address] [place] [address] [email or web address] Historical LMR Provider 03/23/17 documented as of this encounter Additional Source Comments The information contained in this document represents components of the legal health record. It is not the complete legal health record.[facility]
--- OUTSIDE RECORDS SUMMARY | 2025-02-04 09:38 | XMS_ITS | Patient Health Record ---
Author Organization [facility] Address [address] [place] [address] Care Team Providers Care Associate Art Director Name Role Phone TANIA TUTTLE Primary Care Provider Matthew Romero [phone] Allergies Allergen (clinical drug ingredient) Drug/Non Drug [...] Problem Status W/U Status Risk Notes Problem 883651444 Encounter for screening for malignant neoplasm of colon (Z12.11) Active confirmed Problem 431783141 History of adenomatous polyp of colon (Z86.010) Active confirmed Problem 564122135 Gastroesophageal reflux disease with esophagitis (K21.0) Active confirmed Problem 532611113 Barretts esophag us without dysplasia (K22.70) Active confirmed Problem 453319116 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 Plan Of Treatment Future Test Test Name Order Date UPPER GI ENDOSCOPY 01/14/2014 COLONOSCOPY 01/14/2014 UPPER GI ENDOSCOPY 04/12/2019 COLONOSCOPY 04/12/2019 Next Appt Details Provider Name:Matthew Sanches , 03/07/2025 02:40:00 PM, [address] [facility], [address], [place], [address], Insurance Providers Payer Name Payer Address Payer Phone Subscriber Number Group Number Insured Name Patient Relationship to Insured Coverage Start Date Coverage End Date MEDICARE OF [facility] [address] [place] [address] [id number] BEVERLY OROSCO Self - patient is the insured [employer] [address] [place] [phone] [id number] BEVERLY OROSCO Self - patient is the insured Medical (General) History Medical History History ICD Code Denies CO,DM,CVA,Lung disease,renal dise ase Coronary artery disease--2 stents placed in 2004 Hypertension Negative screening colonoscopy in 01/[address] Longoria Hyperlipidemia GERD--EGD in 02/2014-erosive esophagitis, small area of Camejo's without dysplasia, small HH Tubular adenoma removed in 02/2014 with s creening colonoscopy CO in 06/2018 with placement of a single stent Surgical History Surgery Date(Month/Year) Right rotator cuff Left knee arthroscopy Lower back--spinal stenosis
--- OUTSIDE RECORDS SUMMARY | 2025-02-04 09:38 | XMS_ITS | Clinical Summary ---
Author Organization Formerly [facility] Address [address] [place] [phone] Phone Care Team Providers Care Coroner Forensic Technician Name Role Phone Uli Mcgraw MD Unavailable [phone] James Grijalva MD Primary Care Provid er Allergies Active Allergy Reactions Criticality Noted Date Comments Codeine 04/11/2017 Medications aspirin 81 MG EC tablet Take 81 mg by mouth daily. Active nitroglycerin (NITROSTAT) 0.4 MG SL tablet daily as needed. 2 Active finasteride (PROSCAR) 5 mg tablet Take 1 tablet by mouth every morning. 3 Active omeprazole (PRILOSEC) 20 MG capsule Take 1 capsule by mouth 2 (two) times a day. 4 Active atorvastatin (LIPITOR) 80 MG tabletIndicatio ns:Medication refill TAKE 1 TABLET(80 MG) BY MOUTH DAILY 90 tablet 3 4 Active albuterol 90 mcg/actuation inhaler every 6 (six) hours as needed. 4 Active amoxicillin (AMOXIL) 500 MG capsule TAKE 4 CAPSULES BY MOUTH 1 HOUR PRIOR TO APPOINTMENT 4 Active amLODIPine (NORVASC) 5 MG tablet Take 1 tablet (5 mg total) by mouth daily. 90 tablet 3 5 Active isosorbide mononitrate (IMDUR) 30 MG 24 hr tabletIndicatio ns:Coronary artery disease involving skokomish coronary artery of skokomish heart without angina pectoris TAKE 1 TABLET(30 MG) BY MOUTH DAILY 90 tablet 3 5 Active ezetimibe (ZETIA) 10 mg tabletIndicatio ns:Medication refill TAKE 1 TABLET(10 MG) BY MOUTH DAILY 90 tablet 3 5 Active sulindac (CLINORIL) 150 MG tablet 1 tablet with food Orally QD as needed Active empagliflozin (JARDIANCE) 10 mg tablet Take 1 tablet (10 mg total) by mouth daily. 90 tablet 3 5 Active ticagrelor (BRILINTA) 90 mg Tab 1 tablet Orally 025 Discontin ued(No longer taking) Active Problems Problem Noted Date Diagnosed Date Essential hypertension 09/12/2018 Assessment & Plan (01/23/2025 9:44 AM EDT): Blood pressure well-controlled today 124/70. Patient educated on HTN pathophysiology, htn medication, importance of low salt DASH heart healthy diet, exercise and home B/P monitoring. Advised if home blood pressure readings are higher than 130/80 to call the office. Patient will continue on Imdur 30 mg daily and amlodipine 5 mg daily. Assessment & Plan (07/23/2021 5:17 PM EST): Controlled on current therapy. No changes indicated. Of note lisinopril was discontinued secondary to episode of hypotension as reported by patient today in the office. Assessment & Plan (03/25/2020 10:49 AM EDT): Controlled on present therapy. No changes. Assessment & Plan (09/24/2019 11:03 AM EDT): Reasonable control. Assessment & Plan (03/13/2019 10:09 AM EDT): Well-controlled on present therapy. No changes. Assessment & Plan (11/08/2018 11:17 AM EDT): Controlled on present therapy. Assessment & Plan (09/12/2018 10:33 AM EDT): Well-controlled on present therapy. Coronary artery disease invo lving skokomish coronary artery of skokomish heart without angina pectoris 04/11/2017 Overview (09/24/2019): 06/2004 PCI DEVAN X 2 LAD 06/23/2018 PCI STEMI DEVAN Cfx;; RCA 60-70% 06/24/2018 ECHO inferior mild hypokinesis, EF 55-60, 1+ AI 04/05/2019 ECHO 60-65%; DD1; 1+AI; NO WMA Assessment & Plan (01/23/2025 9:49 AM EDT): complex two-vessel disease and considered too high risk for further PCI. It was reported that patient may benefit from a CABG if he has breakthrough anginal symptoms in the future. Patient continues to report shortness of breath specifically on exertion. He tells me however since seeing Dr. Phelan this may have improved a little bit. He denies associated symptoms with this. Dr. Phelan ordered PFTs that showed-This represents essentially normal pulmonary function studies. However, there is a technically significant 10% postbronchodilator improvement in FEV1. If a diagnosis of asthma is in question, a methacholine challenge study could be obtained for further evaluation I will touch base with Dr. Phelan to see if further testing is suggested based off patient's symptoms today. Patient's most recent echo that was done on December 2024 now showed diastolic dysfunction compared to his prior echo in 2021. Since patient does have ongoing shortness of breath I have started him on Jardiance 10 mg daily just to see if this helps. It was also reported if he has further angina or his blood pressure is not optimally controlled increase Imdur to 60 mg and reconsider him for CABG. Will continue to optimize cardiovascular risk factors. He will continue on aspirin 81 mg daily, atorvastatin 80 mg daily and Zetia 10 mg daily and Imdur 30 mg daily. LDL goal should be less than 55. Most recent LDL 67. He is hesitant right now to start on PCSK9 inhibitors. Assessment & Plan (07/23/2021 5:16 PM EST): Recent cardiac cath without resulting stent (07/2021) [place] [facility] [place]. Church. Recommendations are to: Continue aspirin 81 mg daily indefinitely. TTE for further evaluation of LV function (ordered 07/22/2021). Aggressive secondary risk factor modification. Continue to maximize medical therapy. Uptitrate antianginal medications. Consider cardiothoracic surgery consult for surgical revascularization given diffuse nature of disease. Current cardiac regimen aspirin 81 mg, atorvastatin 80 mg, and isosorbide mononitrate 30 mg daily. Patient is doing well today without complaints of angina and/or heart failure. Continue to monitor and follow-up as needed. He has a office visit scheduled with Dr. Sorto on 29 September. Assessment & Plan (03/25/2020 10:49 AM EDT): Physically active and asymptomatic. Assessment & Plan (09/24/2019 11:03 AM EDT): Doing well. No changes. Assessment & Plan (03/13/2019 10:08 AM EDT): No clear etiology. Fatigue is certainly tolerable considering how active he has remained although he does not do regular exercise. I have asked him to repeat his echocardiogram to be sure his left ventricular function is remained normal. Assessment & Plan (11/08/2018 11:17 AM EDT): Remains asymptomatic with any ejection fraction in the mid to low 50s. Little if any significant ischemia. I have given him consent to discontinue his metoprolol. I will bring him back in several months. Assessment & Plan (09/12/2018 10:33 AM EDT): His infarct was in the distribution of his circumflex and he has a known moderate lesion of his right coronary. He will undergo a nuclear stress test off metoprolol to evaluate that stenosis. I have also decreased his metoprolol to 25 mg to see if it has an effect on his emotional lability. Assessment & Plan (06/29/2018 10:30 AM EST): His ECG today reveals a sinus rhythm at 58 with evidence of inferoposterior myocardial infarction. Presently doing well with normal systolic function. We will make no medical changes for now leaving him on increased lisinopril and now on metoprolol. He will begin cardiac rehab at [facility]. I will have him return in 3 months and have his echocardiogram repeated before that visit. I will have a lipid profile drawn then as well. Following that visit I would consider nuclear stress testing to evaluate the 60 or 70% narrowing in his right coronary. Assessment & Plan (12/08/2017 11:23 AM EDT): Doing well. No medication changes. Assessment & Plan (04/11/2017 10:30 AM EST): Remains asymptomatic. Pure hypercholesterolemia 04/11/2017 Assessment & Plan (07/23/2021 5:18 PM EST): Current LDL 60 and below goal of 70. On maximal therapy with atorvastatin 80 mg daily. Continue without change. Assessment & Plan (03/25/2020 10:49 AM EDT): Good profile with an LDL of 60, HDL 43 and triglycerides only 59. Renal and hepatic function remain normal. Assessment & Plan (09/24/2019 11:04 AM EDT): LDL in the 70s with an HDL in the 50s. Renal and hepatic function are fine. Will repeat in 6 months. Assessment & Plan (03/13/2019 10:09 AM EDT): Recent labs include an LDL of 57 HDL 40 and triglycerides 100. Creatinine is 0.9 with a BUN of 23 and a potassium of 4.4. Assessment & Plan (11/08/2018 11:18 AM EDT): Good profile with an LDL in the 70s, HDL of 38 and triglycerides 169. Creatinine normal at 1.1 with a BUN of 23 and a potassium of 4.4. Assessment & Plan (09/12/2018 10:33 AM EDT): Remains on high-dose statin. I will have labs drawn at his last visit. Assessment & Plan (06/29/2018 10:30 AM EST): Remains on high-dose atorvastatin. I will check his lipids at his next visit. Assessment & Plan (12/08/2017 11:24 AM EDT): Lipids are fine. LDL is 74 with an HDL of 47 and triglycerides 96. Creatinine is 1.1. Assessment & Plan (04/11/2017 10:30 AM EST): Recent labs include a benign metabolic and hepatic profile. His LDL is now come down to 63 with an HDL of 46 and triglycerides 88. I will have them repeated in 6 months. Encounters Date Type Department Care Team Description 01/27/2025 Telephone [facility] [address] [facility], [address] [place] [address] Elvi Espitia DNP 01/27/2025 Orders Only [facility] Lorena Harper, [address] [place] [address] Elvi Espitia DNP 01/23/2025 9:30 AM EDT Office Visit [facility] Lorena Harper, [address] [place] [address] Elvi Espitia DNP Essential hypertension (Primary Dx); Coronary artery disease involving skokomish coronary artery of skokomish heart without angina pectoris 01/23/2025 Telephone [facility] Lorena Harper, [address] [place] [address] Elvi Espitia DNP 12/15/2024 Refill [facility] L[address] [facility] [facility], [address] [place] [address] Diaz Sorto MD Medication Refill 12/11/2024 1:06 PM EDT - 12/11/2024 11:59 PM EDT Hospital Encounter [place] [address] Diaz Sorto MD Discharge Disposition: Home or Self Care 06/26/2024 Procedure Pass Echo [place] [address] from Last 3 Months Immunizations Immunization Administration Dates Next Due COVID-19 (Pre-03/27) Pfizer Vaccine, mRNA, PF INFLUENZA, SPLIT VIRUS, TRIVALENT W/ PRESERVATIV E IM 03/08/2016,03/09/2010 Influenza High-Dose Trivalent Preservative Free IM 03/04/2017 Influenza Quadrivalent Adjuvanted Preservative F ree IM 03/01/2020 Influenza Trivalent Adjuvanted Preservative free IM 02/27/2018 Influenza, Unspecified Formulation 03/25/2015 Pneumococcal conjugate PCV13 02/27/2018 Social History Tobacco Use Types Packs/Day Years Used Date Smoking Tobacco: Never Smokeless Tobacco: Never Tobacco Cessation:Counseling Given: Not Answered Alcohol Use Standard Drinks/Week Comments Yes 0 [...] on file Sexual Orientation Not on file Last Filed Vital Signs Vital Sign Reading Time Taken Comments Blood Pressure 124/70 01/23/2025 9:11 AM EDT Pulse 64 01/23/2025 9:11 AM EDT Temperature - - Respiratory Rate - - Oxygen Saturation 97% 01/23/2025 9:11 AM EDT Inhaled Oxygen Concentration - - Weight 98.2 kg (216 lb 9.6 oz) 01/23/2025 9:11 A M EDT Height 177.8 cm (5' 10 ) 01/23/2025 9:11 AM EDT Body Mass Index 31.08 01/23/2025 9:11 AM EDT Plan of Treatment Upcoming Encounters Date Type Department Care Team (Late st Contact Info) Description 03/03/2025 9:00 AM EDT [facility] [address] [facility] [place], [place] [id number] Elvi Espitia, [place] [address] 05/20/2025 1:15 PM EST Office Visit [facility] [address] [facility] 3rd Floor, [address] [place] [address] Hill Navarrete MD [address] [facility], [address] [place] [address] [email or web address] Health Maintenance Due Date Last Done Comments Adult Td,Tdap Booster 1949 DEPRESSION SCREENING 1961 HEPATITIS C SCREENING 1967 COLOGUARD 1994 COLONOSCOPY 1994 COLORECTAL CANCER SCREENING 1994 FIT TEST 1994 FOBT 1994 SIGMOIDOSCOPY 1994 VIRTUAL COLONOSCOPY 1994 ZOSTER VACCINES (1 of 2) 1999 PNEUMOCOCCAL VACCINES (50+ years) (2 of 2 - PPSV23) 02/27/2019 02/27/2018 COVID-19 VACCINE (3 - season) 2024 03/19/2023, 08/29/2020 RSV VACCINE (1 - 1-dose 75+ series) 2024 INFLUENZA VACCINE (#1) 2025 , 03/18/2022, 03/18/2022, Additional history exists BLOOD PRESSURE 07/26/2025 01/23/2025 SMOKING STATUS SCREENING (Once After 26 Yrs) Completed 01/23/2025 HEPATITIS A VACCINES Aged Out No long er eligible based on patient's age to complete this topic HIB VACCINES Aged Out No longer eligi ble based on patient's age to complete this topic MENINGOCOCCAL VACCINES (ACWY) Aged Out No longer eligible based on patient's age to complete this topic MENINGOCOCCAL VACCINES (B) Aged Out N o longer eligible based on patient's age to complete this topic Medical Devices Not on file Procedures Procedure Name Priority Date/Time Associated Diagnosis Comments TTE COMPREHENSIVE Routine 12/11/2024 2:4 0 PM EDT Dyspnea on exertion from Last 3 Months Results * TTE COMPREHENSIVE (12/11/2024 2:40 PM EDT) Height 178 cm Weight 102 kg Systolic BP 114 mmHg Diastolic BP 55 mmHg Left Atrium Dimension Anterior-Posterior 42 15 - 40 mm Interventricular Septum Thickness 13 6 - 11 mm Left Ventricle Internal Diameter End Diastole 44 42 - 58 mm Left Ventricle Internal Diameter End Systole 28 <40 mm Left Ventricular Outflow Tract Diameter 22.0 mm Left Ventricular Posterior Wall Thickness 11 6 - 11 mm Left Ventricle Ea Lateral Wave Speed 7.1 cm/s Left Ventricle Ea Septal Wave Speed 3.7 cm/s Ejection Fraction 76 50 - 75 Percent Aortic Valve Regurgitation Pressure Half Time 705 ms Aortic Valve Peak Velocity 1.6 m/s Aortic Valve Peak Gradient 10 mmHg Aortic Valve Mean Gradient 6 mmHg Aortic Valve Time Velocity Integral 409.0 mm Aortic Arch Diameter 25 mm Aortic Sinus Diameter 35 <40 mm Ascending Aorta Diameter 34 <36 mm Inferior Vena Cava Diameter 27 <21 mm Mitral Valve Deceleration Time 135 ms Left Ventricle A Wave Speed 90.4 cm/s Left Ventricle E Wave Speed 84.0 cm/s Mitral Valve Mean Gradient 1 mmHg Mitral Valve Peak Gradient 4 mmHg Mitral Valve Area Continuity Equation 2.60 cm2 Pulmonary Valve Peak Velocity 0.9 m/s Pulmonary Valve Peak Gradient 4 mmHg Right Ventricle Basal Diameter 32 25 - 41 mm Tricuspid Valve Peak Velocity 2.1 m/s Raw LV EF% 60 % MV E/E' Tissue Velocity Lateral 11.83 Relative Wall Thickness 0.50 0.22 - 0.42 MV E/A ratio 0.9 MV E/e' septal 22.70 Left Ventricle E/e' Average 17.3 Aortic Valve Prosthetic Peak Gradient 10 mmHg Aortic Valve Prosthetic Mean Gradient 6 mmHg Aorta Sinus Index by Height 1.97 cm/m Aorta Sinus CSA index by Height 5.40 cm2/m Asc Aorta CSA Index by Height 5.10 cm2/m Mitral Valve Prosthetic Peak Gradient 4 mmHg Mitral Valve Prosthetic Mean Gradient 1 mmHg Right Ventricle to Right Atrium Pressure Gradient 18 mmHg Right Ventricle Peak Systolic Pressure (Assuming RAP 10) 28 mmHg MGB CV ECHO TV RVSP (ASSUMING RAP OF 5) 23 mmHg RVSP (Exclusive of RAP) 18 mmHg Pulmonic Valve Prosthetic Peak Gradient 4 mmHg Echo E/Ea 22.70 Body Surface Area 2.19 m2 Left Atrial Volume Index 19 16 - 34 mL/m2 Right Ventricle Peak Systolic Pressure 21 mmHg Left Ventricle indexed to BSA 87.4 g/m2 Left Atrial Volume 41 mL Left Atrial Volume Index by Height 23 mL/m Right Atrium Area 13 cm2 Right Atrium Area index 6 cm2/m2 Aortic Valve Vena Contracta 57 mm Aortic Valve Sinus Index by BSA 16 mm/m2 Ascending Aorta Index 16 mm/m2 Right Atrium Pressure Estimated 3 mmHg Ascending Aorta Index 16 mm Aortic Sinus Index 16 mm Ascending Aorta Diameter 16 mm Aortic Valve Sinus Index 1 16 20 - 32 mm AO ASC DIAM BSA INDEX 15.53 Anatomical Region Laterality Modality Heart Ultrasound Narrative 12/12/2024 10:33 AM EDT Images from the original result were not included. Mild LVH with low normal LV systolic function EF 55%. Mild left atrial enlargement. Elevated E/E prime ratio which may suggest elevated left atrial pressure. Mild aortic insufficiency. Grossly normal RV size and function. PA pressure estimation appear to be within normal limits Compared to prior study from 2021, diastolic dysfunction is now noted. Left Ventricle The left ventricle is normal in size. There is mild concentric hypertrophy. Left ventricular systolic function is at the lower limits of normal. The LV ejection fraction is 50-55% (visually estimated). There is abnormal diastolic function. There is Grade II diastolic dysfunction. Right Ventricle The RV is suboptimally visualized. The right ventricle is normal in size. The RV basal dimension is 32 mm. There is normal right ventricular systolic function. Left Atrium The left atrium is mildly dilated. The left atrial volume index by BSA is 19 mL/m2. Right Atrium The right atrium is normal in size. The right atrial area is 13 cm2. Mitral Valve There is mild mitral valve thickening. There is no mitral stenosis. There is mild mitral regurgitation. Tricuspid Valve The tricuspid valve appears normal. There is no tricuspid stenosis. There is mild tricuspid regurgitation. The RV systolic pressure was calculated at 21 mmHg (using TR peak velocity of 2.1 m/s and assuming an RA pressure of 3 mmHg). Aortic Valve The aortic valve is tricuspid. There is no aortic stenosis. There is mild aortic regurgitation. The vena contracta is 57 mm. The regurgitation pressure half time is 705 ms. The visualized portions of the thoracic aorta appear normal in size. Pulmonic Valve The pulmonic valve appears normal. There is no pulmonic stenosis. There is trace pulmonic regurgitation. Pericardium There is a trace circumferential pericardial effusion. General Findings The image quality was fair (3). Technique(s) used in the evaluation: Multiplane, Color flow Doppler, Spectral Doppler and Epiaortic scan. Adequate windows include: parasternal, apical, subcostal and suprasternal. The predominant rhythm during the study was sinus. Patient tolerated the procedure well. Comparison Findings Compared to prior TTE on 11/15/2021, IAS/IVS The interatrial septum appears normal. Diaz Sorto MD CV ECHO ORDERABLES Final Resu lt from Last 3 Months Insurance MEDICARE PART A & B [place] [employer] SUPPLE[place] MEDICARE PART A & B [place] MED[place] SUPP[place] MEDICARE PART A & B [place] MED[place] SUPP[place] MEDICARE PART A & B [place] MEDICARE SUPPLEMENT [facility] Address: [facility] [address] [place] [address] MEDICARE PART A & B [place] MED[place] SUPPLEMENT MEDICARE PART A & B [place] MED[place] SUPPLEMENT MEDICARE PART A & B [place] MED[place] SUPPLE[place] MEDICARE PART A & B [place] MED[place] SUPPLE[place] MEDICARE PART A & B [place] MEDIC[place] SUPPLEMENT Care Teams Coroner Forensic Technician Relationship Specialty Start Date End Date James Grijalva MD [address] [place] [phone] PCP - General Internal Medicine 12/11/24 Uli Mcgraw MD [address] [place] [id number] [email or web address] Historical LMR Provider 03/23/17 Additional Source Comments The information contained in this document represents components of the legal health record. It is not the complete legal health record.[facility]
[2025-02-04 10:57] LABS: Appearance Urine Clear; Glucose Urine UA >=1000 mg/dL (Negative); PH 5.5 (5.0-9.0); Specific Gravity - Urine 1.025 (1.005-1.025); UMIC TRIGGER UA YES
[2025-02-04 11:03] LABS: Hematocrit 41.4 % (42.0-52.0); Hemoglobin 14.3 g/dl (14.0-18.0); Mean Corpuscular HGB Conc 34.5 g/dl (31.0-36.0); Mean Corpuscular Hemoglobin 31.7 pg (27.0-33.0); Mean Corpuscular Volume 91.8 fL (80.0-98.0); NRBC Abs Auto 0.000 X10*3/uL (0.0-0.012); NRBC Pct Auto 0.0 /100WBC (0.0-0.2); Platelet Count 150 X10*3/uL (160-400); Red Blood Count 4.51 X10*6/uL (4.60-5.80); White Blood Count 5.2 X10*3/uL (4.8-10.8)
[2025-02-04 11:45] LABS: Prostate Specific Antigen 1.31 ng/mL (<0.05-4.0)
[2025-02-04 11:59] LABS: Thyroid Stimulating Hormone 2.80 uIU/mL (0.32-4.0)
[2025-02-04 13:23] LABS: Alanine Aminotransferase 31 U/L (0-40); Albumin Level 4.5 g/dL (3.5-5.0); Alkaline Phosphatase 56 U/L (39-117); Anion Gap 12 (12-20); Aspartate Amino Transferase 30 U/L (5-37); Blood Urea Nitrogen 24 mg/dL (9-16); Calcium 9.2 mg/dL (8.4-10.2); Carbon Dioxide 25 mmol/L (22-29); Chloride 109 mmol/L (96-108); Cholesterol 122 mg/dL (<200); Estimated Glomerular Filt Rate > 60; HDL Cholesterol 36 mg/dL (>40); Potassium 4.2 mmol/L (3.3-5.1); Sodium 142 mmol/L (135-145); Total Protein 6.9 g/dL (6.5-8.0); Triglycerides 84 mg/dL (<150)
== END 2025-02-04 08:53 | disposition home or self-care (01) ==
LOC: HO.10HDL 08:52
PROVIDERS: Internal Medicine; Visit Provider Nurse Practitioner Family
DX: N40.0 Benign prostatic hyperplasia without lower urinary tract symptoms (principal); R97.20 Elevated prostate specific antigen [PSA]; I10 Essential (primary) hypertension; Z12.5 Encounter for screening for malignant neoplasm of prostate
CPT/HCPCS: 36415; 80048; 80061; 80076; 81001; 84153; 84443; 85027

== ENCOUNTER 2025-02-07 08:33 | Outpatient (REF) | payer MEDICARE, OTHER, SELFPAY ==
--- OUTSIDE RECORDS SUMMARY | 2025-02-07 09:00 | XMS_ITS | Encounter Summary ---
Author Organization [facility] Address [address] [place] [id number] Phone Care Team Providers Care Event Marketing Specialist Name Role Phone Dean Rivera MD Primary Care Provider [phone] Uli Mcgraw MD Unavailable [phone] James Grijalva MD Primary Care Provid er Encounter Details Date Type Department Care Team (Late Contact Info) Description 06/26/2024 Procedure Pass Echo Lab [address] [place], [place] [id number] Social History Tobacco Use Types Packs/Day Years [...] Description 03/03/2025 9:00 AM EDT Office Visit [facility] [address], [address] [place] [address] Elvi Espitia, MADDY [address] [place] [address] 05/20/2025 1:15 PM EST Office Visit [facility] [address], [address] [place] [address] Hill Navarrete MD 22 [facility], [address] [place] [address] [email or web address] documented as of this encounter Visit Diagnoses Not on filedocumented in this encounter Care Teams Event Marketing Specialist Relationship Specialty Start Date End Date Dean Rivera MD [address] [place] [address] PCP - General 03/23/17 12/10/24 James Grijalva MD [address] [place] [address] PCP - General Internal Medicine 12/11/24 Uli Mcgraw MD [address] [place] [phone] [email or web address] Historical LMR Provider 03/23/17 documented as of this encounter Additional Source Comments The information contained in this document represents components of the legal health record. It is not the complete legal health record.[facility]
--- OUTSIDE RECORDS SUMMARY | 2025-02-07 09:00 | XMS_ITS | Encounter Summary ---
Author Organization [facility] Address [address] [place] [address] [place] [address] Phone Care Team Providers Care Cigar Head Piercer Name Role Phone Dean Rivera MD Primary Care Provider [phone] Uli Mcgraw MD Unavailable [phone] James Grijalva MD Primary Care Provid er Encounter Details Date Type Department Care Team (Late st Contact Info) Description 07/22/2021 Procedure Pass Echo Lab [place] [address] Social History Tobacco Use Types Packs/Day Years [...] Description 03/03/2025 9:00 AM EDT Office Visit [facility] [address], [address] [place] [address] Elvi Espitia, [address] [address] 05/20/2025 1:15 PM EST Office Visit [facility] [address], [address] [place] [address] Hill Navarrete MD 22 [facility], [address] [address] [email or web address] documented as of this encounter Visit Diagnoses Not on filedocumented in this encounter Care Teams Cigar Head Piercer Relationship Specialty Start Date End Date Dean Rivera MD [address] [place] [phone] PCP - General 03/23/17 12/10/24 James Grijalva MD [address] [place] [address] PCP - General Internal Medicine 12/11/24 Uli Mcgraw MD [address] [place] [phone] [email or web address] Historical LMR Provider 03/23/17 documented as of this encounter Additional Source Comments The information contained in this document represents components of the legal health record. It is not the complete legal health record.[facility]
--- OUTSIDE RECORDS SUMMARY | 2025-02-07 09:01 | XMS_ITS | Encounter Summary ---
Author Organization [facility] Address [address] [place] [address] [address] [place] [address] Phone Care Team Providers Care Hotel Superintendent Name Role Phone Uli Mcgraw MD Unavailable [phone] James Grijalva MD Primary Care Provid er Reason for Referral * Consultation (Within 2 weeks) - New Request Specialty Diagnoses / Procedures Referred By Mango boss Referred To Contact Pulmonary Disease Elvi Espitia DNP [address] [place] [address] Phone: tel: fax: [email or web address] [facility] [address] [place] [address] Phone: tel: Referral ID Status Reason Start Date Expiration Date V isits Requested Visits Authorized [id number] New Request 01/27/2025 01/27/2026 1 1 Encounter Details Date Type Department Care Team (Late st Contact Info) Description 01/27/2025 Orders Only [facility] [address] 3rd Floor, [address] [place] [address] Elvi Espitia DNP [address] [place] [address] Social History Tobacco Use Types Packs/Day Years [...] Description 03/03/2025 9:00 AM EDT Office Visit [facility] [address] [place] [address] [place] [address], [address] [place] [address] Elvi Espitia, [address] [address] 05/20/2025 1:15 PM EST Office Visit [facility] [address], [address] [place] [address] Hill Navarrete MD [address] [place] [address] Scheduled Referrals Name Type Priority Associated Diagnoses Order Schedule Ambulatory referral to [facility] Pulmonology Outpatient Referral Routine Ordered: 01/27/2025 documented as of this encounter Visit Diagnoses Not on filedocumented in this encounter Care Teams Hotel Superintendent Relationship Specialty Start Date End Date James Grijalva MD [address] [place] [address] PCP - General Internal Medicine 12/11/24 Uli Mcgraw MD [address] [address] [email or web address] Historical LMR Provider 03/23/17 documented as of this encounter Additional Source Comments The information contained in this document represents components of the legal health record. It is not the complete legal health record.[facility]
--- OUTSIDE RECORDS SUMMARY | 2025-02-07 09:01 | XMS_ITS | Clinical Summary ---
Author Organization [facility] Address [address] [place] [address] Phone Care Team Providers Care Merchandise Presentation Manager Name Role Phone Uli Mcgraw MD Unavailable [phone] James Grijalva MD Primary Care Provid [...] 24 hr tabletIndicatio ns:Coronary artery disease involving platinum coronary artery of platinum heart without angina pectoris TAKE 1 TABLET(30 [...] present therapy. Coronary artery disease invo lving platinum coronary artery of platinum heart without angina pectoris 04/11/2017 Overview (09/24/2019): [...] cardiac cath without resulting stent (07/2021) at [facility] by Dr. Church. Recommendations are to: Continue [...] metoprolol. He will begin cardiac rehab at [facility]. I will have him return in [...] Type Department Care Team Description 01/27/2025 Telephone [facility] [address] [facility], [address] [place] [address] Elvi Espitia DNP 01/27/2025 Orders Only [facility] Lore[address] Harper, [address] [place] [address] Elvi Espitia DNP 01/23/2025 9:30 AM EDT Office Visit [facility] [address], [address] [place] [address] Elvi Epsitia DNP Essential hypertension (Primary Dx); Coronary artery disease involving platinum coronary artery of platinum heart without angina pectoris 01/23/2025 Telephone [facility] [address], [address] [place] [address] Elvi Espitia DNP 12/15/2024 Refill [facility] Lorena hollow[address] [facility], [address] [place] [address] Diaz Sorto MD Medication Refill 12/11/2024 1:06 PM EDT - 12/11/2024 11:59 PM EDT Hospital Encounter [place] [address] Diaz Sorto MD Discharge Disposition: Home or Self Care 06/26/2024 Procedure [place] [address] from Last 3 Months Immunizations Immunization Administration [...] Description 03/03/2025 9:00 AM EDT Office Visit [facility] [address], [address] [place], [place] [id number] Elvi Espitia, [place] [address] 05/20/2025 1:15 PM EST Office Visit [facility] 22 [facility] 3rd Floor, [address] [place] [address] Hill Navarrete MD 22 [facility], [address] [place] [address] [email or web address] Health Maintenance Due Date Last Done Comments Adult Td,Tdap Booster 1949 DEPRESSION SCREENING 1961 HEPATITIS C SCREENING 1967 COLOGUARD 1994 COLONOSCOPY 1994 COLORECTAL CANCER SCREENING 1994 FIT TEST 1994 FOBT 1994 SIGMOIDOSCOPY 1994 VIRTUAL COLONOSCOPY 1994 ZOSTER VACCINES (1 of 2) 1999 PNEUMOCOCCAL VACCINES (50+ years) (2 of 2 - PPSV23) 02/27/2019 02/27/2018 RSV VACCINE (1 - 1-dose 75+ series) 2024 INFLUENZA VACCINE (#1) 2025 , 03/18/2022, 03/18/2022, Additional history exists COVID-19 VACCINE (3 - 2024- season) 2025 03/19/2023, 08/29/2020 BLOOD PRESSURE 07/26/2025 01/23/2025 SMOKING STATUS SCREENING [...] Months Insurance MEDICARE PART A & B [place] MEDICARE PART A & [place] MED[place] MEDICARE PART A & B [place] MED[place]PP[place]MENT MEDICARE PART A & B [place] SUPPLEMENT MEDICARE PART A & B [place] MED[place] SUPP[place] MEDICARE PART A & B [place] MED[place] SUPPLEMENT MEDICARE PART A & B [place] MED[place]ARE SUPPLEMENT MEDICARE PART A & B [place] MED[place] SUPP[place] MEDICARE PART A & B [place] MEDICARE SUPPLEMENT Care Teams Merchandise Presentation Manager Relationship Specialty Start Date End Date James Grijalva MD [address] [place] [address] PCP - General Internal Medicine 12/11/24 Uli Mcgraw MD [address] [place] [address] [email or web address] Historical LMR Provider 03/23/17 Additional Source Comments The information contained in this document represents components of the legal health record. It is not the complete legal health record.[facility]
--- OUTSIDE RECORDS SUMMARY | 2025-02-07 09:01 | XMS_ITS | Patient Health Record ---
Author Organization [facility] Address [address] [place] [address] Care Team Providers Care Discharging Machine Operator Name Role Phone TANIA TUTTLE Primary Care Provider Matthew Romero [phone] Allergies Allergen (clinical drug ingredient) Drug/Non Drug [...] Problem Status W/U Status Risk Notes Problem 592932346 Encounter for screening for malignant neoplasm of colon (Z12.11) Active confirmed Problem 973225278 History of adenomatous polyp of colon (Z86.010) Active confirmed Problem 580424255 Gastroesophageal reflux disease with esophagitis (K21.0) Active confirmed Problem 351877068 Barretts esophag us without dysplasia (K22.70) Active confirmed Problem 836596693 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 Plan Of Treatment Future Test Test Name Order Date UPPER GI ENDOSCOPY 01/14/2014 COLONOSCOPY 01/14/2014 UPPER GI ENDOSCOPY 04/12/2019 COLONOSCOPY 04/12/2019 Next Appt Details Provider Name:Matthew Sanches , 03/07/2025 02:40:00 PM, [address] [facility], [address], [place], [address], Insurance Providers Payer Name Payer Address Payer Phone Subscriber Number Group Number Insured Name Patient Relationship to Insured Coverage Start Date Coverage End Date MEDICARE OF [facility] [address] [place] [address] [id number] BEVERLY OROSCO Self - patient is the insured [employer] [address] [place] [id number] BEVERLY OROSCO Self - patient is the insured Medical (General) History Medical History History ICD Code Denies VA,DM,CVA,Lung disease,renal dise ase Coronary artery disease--2 stents placed in 2004 Hypertension Negative screening colonoscopy in 01/[address] Longoria Hyperlipidemia GERD--EGD in 02/2014-erosive esophagitis, small area of Camejo's without dysplasia, small HH Tubular adenoma removed in 02/2014 with s creening colonoscopy VA in 06/2018 with placement of a single stent Surgical History Surgery Date(Month/Year) Right rotator cuff Left knee arthroscopy Lower back--spinal stenosis
--- OUTSIDE RECORDS SUMMARY | 2025-02-07 09:01 | XMS_ITS | Encounter Summary ---
Author Organization [facility] Address [address] [place] [address] [place] [address] Phone Care Team Providers Care Hedis Abstractor Name Role Phone Dean Rivera MD Primary Care Provider [phone] Dean Rivera MD Unavailable [phone] Uli Mcgraw MD Unavailable [phone] James Grijalva MD Primary Care Provid er Encounter Details Date Type Department Care Team (Latest Contact Info) Description 04/07/2017 Transcribe Orders [facility] [address] [place] [address] Uli Mcgraw MD [address] [place] [address] Pure hypercholesterolemia (Primary Dx) Social History Tobacco [...] Description 03/03/2025 9:00 AM EDT Office Visit [facility] [address], [address] [place] [address] Elvi Espitia, [facility] [address] [place] [address] 05/20/2025 1:15 PM EST Office Visit [facility] 22 [facility] 3rd Floor, [address] [place] [address] Hill Navarrete MD [address] [facility] [address] [place] [address] [email or web address] documented as of this encounter Results * LFTs (hepatic panel) (04/07/2017 8:40 AM EDT) ALKALINE PHOSPHATASE 50 39 - 117 U/L [facility] TOTAL BILIRUBIN 0.5 0 - 1.2 mg/dL [facility] DIRECT BILIRUBIN <0.2 0 - 0.3 mg/dL [facility] Bilirubin (Indirect) NOT CALCULATED 0 - 1.5 mg/dL [facility] AST 25 0 - 37 U/L [facility] ALT 22 0 - 40 U/L [facility] TOTAL PROTEIN 6.6 6.5 - 8.0 g/dL [facility] ALBUMIN 4.2 3.9 - 4.8 g/dL [facility] GLOBULIN 2.4 1 - 4.8 g/dL [facility] A/G Ratio 1.75 1.00 - 4.80 RATIO [facility] Blood 04/07/2017 8:40 AM EDT 04/07/2017 8:42 AM EDT us Uli Mcgraw MD LAB BLOOD ORDERABLES Edited Res ult - Final [facility] [address] [place] [address] * (ABNORMAL) Lipid panel (04/07/2017 8:40 AM EDT) HDL 46 mg/dL [facility] Comment: Interpretation: Risk Level Males Decreased >45 mg/dL Average 40-45 mg/dL Increased <40 mg/dL CHOLESTEROL 127 0 - 240 mg/dL [facility] TRIGLYCERIDES 88 30 - 160 mg/dL [facility] LDL 63 50 - 129 mg/dL [facility] Comment: LDL levels in terms of risk for coronary heart disease: <100 mg/dL: Optimal 100-129 mg/dL: Near or above optimal 130-159 mg/dL: Borderline high 160-189 mg/dL: High >190 mg/dL: Very High CARDIAC RISK RATIO 2.8(L) 3.4 - 5.0 [facility] Blood 04/07/2017 8:40 AM EDT 04/07/2017 8:42 AM EDT Uli Mcgraw MD LAB BLOOD ORDERABLES Final Resu lt Performing Organization Address City/[facility]/ZIP Co de Phone Number [address] [address] * (ABNORMAL) Basic metabolic panel (04/07/2017 8:40 AM EDT) SODIUM 141 133 - 146 mmol/L [facility] CHLORIDE 104 96 - 108 mmol/L [facility] POTASSIUM 4.7 3.3 - 5.1 mmol/L [facility] CO2 27 21 - 35 mmol/L [facility] BUN 23(H) 6 - 19 mg/dL [facility] CREATININE 0.90 0.5 - 1.5 mg/dL [facility] GLUCOSE 101(H) 70 - 99 mg/dL [facility] CALCIUM 9.2 8.4 - 10.3 mg/dL [facility] EGFR >60 >60 mL/min/1.7 3m2 [facility] Comment:Abnormal if <60. If patient is -Bhutanese, multiply the result by 1.21. ANION GAP 15 10 - 20 mmol/L [facility] Blood 04/07/2017 8:40 AM EDT 04/07/2017 8:42 AM EDT Uli Mcgraw MD LAB BLOOD ORDERABLES Final Resu lt Performing Organization Address City/[facility]/ZIP Co de Phone Number [address] [address] documented in this encounter Visit Diagnoses Diagnosis Pure hypercholesterolemia- Primary documented in this encounter Care Teams Hedis Abstractor Relationship Specialty Start Date End Date Dean Rivera MD [address] [place] [address] PCP - General 03/23/17 12/10/24 James Grijalva MD [address] [place] [address] PCP - General Internal Medicine 12/11/24 Dean Rivera MD [address] [place] [address] Historical LMR Provider 03/23/17 2 Uli Mcgraw MD [address] [place] [address] [email or web address] Historical LMR Provider 03/23/17 documented as of this encounter Additional Source Comments The information contained in this document represents components of the legal health record. It is not the complete legal health record.[facility]
[2025-02-07 10:47] LABS: Appearance Urine Clear; Glucose Urine UA >=1000 mg/dL (Negative); PH 6.5 (5.0-9.0); Specific Gravity - Urine 1.020 (1.005-1.025); UMIC TRIGGER UA YES
[2025-02-07 11:07] LABS: Hemoglobin A1C 147.8610 umol/L; Total Hemoglobin (HGBA1C) 3618.8019 umol/L
== END 2025-02-07 08:34 | disposition home or self-care (01) ==
LOC: HO.10HDL 08:33
PROVIDERS: Visit Provider Internal Medicine
DX: I10 Essential (primary) hypertension (principal); R81 Glycosuria; Z13.1 Encounter for screening for diabetes mellitus
CPT/HCPCS: 36415; 81001; 83036

== ENCOUNTER 2025-03-13 09:55 | Outpatient (AMB) | payer MEDICARE, OTHER, SELFPAY ==
[2025-03-13 09:58] VITALS: BP 132/69; PULSE 62; RESP 16; TEMP 36.3; O2SAT 99; BMI 30.8
--- NOTE | 2025-03-13 09:58 | A.OFFPC_ITS ---
Vital Signs 03/13/25 09:58 Height 5 ft 10.08 in Weight 215 lb 4 oz BMI 30.8 BP 132/69 Blood Pressure Location Lt brachial Position Sitting Respiration 16 Pulse 62 Pulse Source Pulse Oximeter Temp 97.4 F Temp Source Temporal Artery Scan Pulse Oximetry (%) 99 Oxygen Delivery Method Room Air Intake Visit Reasons: follow up Breakfast Host Required: No Accompanied by: Self / Same As Patient Allergies acetaminophen (From Tylenol PM) Allergy (Mild, Verified 03/13/25 13:01) Unknown diphenhydramine (From Tylenol PM) Allergy (Mild, Verified 03/13/25 13:01) Unknown Medication List - Last Reconciled 03/13/25 by Norma Alba PA-C amlodipine 5 mg PO DAILY aspirin 81 mg PO DAILY atorvastatin 80 mg PO DAILY ezetimibe 10 mg PO DAILY finasteride 5 mg PO .MWF 90 days isosorbide mononitrate ER 30 mg PO DAILY nitroglycerin 0.4 mg sublingual omeprazole 20 mg PO BID Tobacco use date assessed: 03/13/25 Dental Screening Dental Screen Date: 03/13/25 Did you have a dental visit in the last 12 months?: Yes Did you have a dental problem in the last 6 months where you did not have access to dental care?: No Was dental information given to patient?: Patient has dentist HPI follow up HPI Details The patient is a 74-year-old male presenting with a blood pressure check. He was previously seen by Dr. Stafford, who noted elevated blood pressure, but today his blood pressure is normal. The patient is currently on multiple medications including amlodipine, aspirin, atorvastatin, ezetimibe, finasteride, isosorbide mononitrate, nitroglycerin, and omeprazole. The patient reports being started on Jardiance by Dr. Stafford due to glucose levels greater than 1000 in his urine. However, his A1c is 5.9, indicating prediabetes rather than diabetes. The patient is unsure why he is on Jardiance and denies being diabetic. The patient was informed about the possibility of benign renal glycosuria or transient stress-related hyperglycemia. Early glucose intolerance was considered less likely due to the A1c level and lack of other hyperglycemia evidence. The patient was advised to discontinue Jardiance and will be referred to nephrology for further evaluation. PFSH Medical History (Updated 03/13/25 @ 13:09 by Norma Alba PA-C) Glucose found in urine on examination Prediabetes Renal glycosuria CAD (coronary artery disease) GERD (gastroesophageal reflux disease) High cholesterol Hypertension Arthritis Surgical History History of esophagogastroduodenoscopy (EGD) (~02/10/14) History of colonoscopy (~02/10/14) Family History Father No problems noted. Mother No problems noted. Social History Housing: House Alcohol intake: current Alcohol intake frequency: holidays/special occasions only Patient Tobacco Use Status: Never used Tobacco service: No Current occupational status: retired Cognitive needs: No Hearing needs: No Vision needs: Yes (rx glasses) Questionnaire PHQ-9 Over the last 2 weeks, how often have you been bothered by any of the following problems? 1. Little interest or pleasure in doing things: not at all 2. Feeling down, depressed, or hopeless: not at all 3. Trouble falling or staying asleep, or sleeping too much: not at all 4. Feeling tired or having little energy: not at all 5. Poor appetite or overeating: not at all 6. Feeling bad about yourself - or that you are a failure or have let yourself or your family down: not at all 7. Trouble concentrating on things, such as reading the newspaper or watching television: not at all 8. Moving or speaking so slowly that other people could have noticed. Or the opposite - being so fidgety or restless that you have been moving around a lot more than usual: not at all 9. Thoughts that you would be better off or of hurting yourself in some way: not at all Total score: 0 Depression Screening Interpretation: Negative Depression Screening Done: Yes 42010 - PHQ-9 Billing: Yes Source: Developed by Drs. Matthew Carr, Sierra Oswald, Kristian Chester and colleagues, with an educational jennifer from [employer]. Thrive Questionnaire Date Thrive assessed: 03/13/25 I am a: Patient What is your living situation today?: I have a steady place to live Within the past 12 months, did the food you bought not last and you didn't have the money to get more?: Never true Within the past 12 months, did you worry whether your food would run out before you got money to buy more?: Never true Do you have trouble paying for medicines?: No Do you have trouble getting transportation to medical appointments?: No Do you have trouble paying your heating and electricity bill?: No Do you have trouble taking care of your child, family member or friend?: No Do you have trouble with day-to-day activities such as bathing, preparing meals, shopping, managing finances, etc.?: No Are you currently unemployed and looking for a job?: No Are you interested in more education?: No Please select the resources that you would like help with: None THRIVE Score: 0 AUDIT C Alcohol Use Questionnaire (AUDIT-C) 1. How often do you have a drink containing alcohol?: Monthly or less 2. How many drinks containing alcohol do you have on a typical day when you are drinking?: 1 or 2 3. How often do you have six or more drinks on one occasion?: Never Total Score: 1 Score Reviewed/Action Taken: No OLGA-7 AMB Questionnaire OLGA-7 Date OLGA - 7 assessed: 11/26/24 Feeling nervous, anxious, or on edge: 0 = Not at all Not being able to stop or control worryin = Not at all Worrying too much about different things: 0 = Not at all Trouble relaxin = Not at all Being so restless that it is hard to sit still: 0 = Not at all Becoming easily annoyed or irritable: 0 = Not at all Feeling afraid as if something awful might happen: 0 = Not at all Total OLGA-7 score (0-4 normal; 5-9 mild; 10-14 moderate; 15-21 severe): 0 Source: Developed by Drs. Matthew Carr, Sierra Oswald, Kristian Chester and colleagues, with an educational jennifer from [employer]. OLGA-7 Assessment Billing OLGA-7 Assessment Tool: OGLA-7 Assessment 12743 Review of Systems Const Details: - General: Denies any acute symptoms at this time. All systems reviewed & are unremarkable except as noted in HPI and below Physical exam (Primary Care) Vital Signs: Last Vital Signs Temp 97.4 F 03/13/25 09:58 Pulse 62 03/13/25 09:58 Resp 16 03/13/25 09:58 BP 132/69 03/13/25 09:58 Pulse Ox 99 03/13/25 09:58 Oxygen Delivery Method Room Air 03/13/25 09:58 Care Plan Goal for BP management: <140/90 at Goal BMI result Body Mass Index 30.8 BMI Assessment/Plan discussion: High BMI High, discussed plan: lifestyle, weight reduction, dietary, physical activity, alcohol moderation and other Tobacco/Smoking Status: Tobacco use Status Tobacco use date assessed 03/13/25 03/13/25 10:01 Patient Tobacco Use Status Never used Tobacco 03/13/25 10:01 PHQ-9: PHQ-9 Score PHQ-9: Total score 0 03/13/25 10:01 Depression Screening Interpretation: Negative Thrive Assessment: Date of Thrive Assessment Date Thrive assessed 03/13/25 03/13/25 10:01 Const Other: Appearance: Alert. Oriented X3. No acute distress. Head: Normal external exam. Normocephalic. Atraumatic. Eyes: Pupils are equal, round, and reactive to light. Extraocular movements intact. Conjunctiva and sclera normal. Eyelids normal. Throat: Pharynx normal. Uvula midline. Moist mucous membranes. Neck: Normal inspection. Neck supple. Full range of motion. Cardiovascular: Normal heart rate and rhythm. Respiratory: No respiratory distress. Painless inspiration. Back: Full range of motion noted. Skin: Skin warm and dry. Normal skin color. Extremities: No lower extremity edema. Extremities exhibit normal range of motion. Neuro: Oriented X 3. No motor deficit. No sensory deficit. Reflexes normal. Results Reviewed Results Reviewed: - Labs: A1c 5.9, indicating prediabetes. - Labs: Urine glucose greater than 1000. Coding Level of Care Code Est Pt Level 4 (00843) Complex EM visit Add On G2211 Diagnoses Hypertension I10 Prediabetes R73.03 Glucose found in urine on examination R81 Additional Codes PHQ-9 - 92623 - PHQ-9 Billing: Yes ([id number]) OLGA-7 Assessment Billing - OLGA-7 Assessment Tool: OLGA-7 Assessment 20814 ([id number]) Assessment & Plan Assessment & Plan (1) Hypertension: Code(s): I10 - Essential (primary) hypertension Category: Medical Plan: The patient's blood pressure was checked and found to be normal today. He is currently on amlodipine 5 mg, which appears to be effectively managing his hypertension. (2) Prediabetes: Code(s): R73.03 - Prediabetes Category: Medical Plan: The patient was started on Jardiance due to high urine glucose levels, but his A1c of 5.9 indicates prediabetes rather than diabetes. Jardiance was discontinued, and the patient will be referred to nephrology for further evaluation. (3) Glucose found in urine on examination: Code(s): R81 - Glycosuria Category: Medical Plan: The patient was informed about the possibility of benign renal glycosuria. He will be referred to nephrology for further evaluation and management. Plan Plan Patient was informed and verbally consented to the use of an ambient scribe for clinic note documentation during this visit. 1. Hypertension The patient's blood pressure was checked and found to be normal today. He is currently on amlodipine 5 mg, which appears to be effectively managing his hypertension. 2. Prediabetes The patient was started on Jardiance due to high urine glucose levels, but his A1c of 5.9 indicates prediabetes rather than diabetes. Jardiance was discontinued, and the patient will be referred to nephrology for further evaluation. 3. Benign Renal Glycosuria The patient was informed about the possibility of benign renal glycosuria. He will be referred to nephrology for further evaluation and management. I discussed with the patient that his current A1c level of 5.9 indicates prediabetes, not diabetes, and explained the rationale for discontinuing Jardiance. I also informed him about the possibility of benign renal glycosuria and the plan to refer him to nephrology for further evaluation. We agreed on a follow-up in three months to reassess his blood pressure and chronic medical conditions. Orders: Referrals Nephrology Referral E74.818 - Other disorders of glucose transport Patient Instructions: - Discontinue Jardiance as discussed. - Follow up with nephrology for further evaluation of renal glycosuria. - Return in three months for blood pressure check and chronic condition management.
== END 2025-03-13 11:00 | disposition home or self-care (01) ==
LOC: HO.HMCSH 09:55
PROVIDERS: PCP Internal Medicine; Visit Provider Physician Assistant Medical
DX: I10 Essential (primary) hypertension (principal); R73.03 Prediabetes; R81 Glycosuria

== ENCOUNTER → 2025-03-13 09:55 | Outpatient (BNVA) | payer MEDICARE, OTHER, SELFPAY | PROVIDERS: PCP Internal Medicine; Visit Provider Physician Assistant Medical | DX: Z01.30 Encounter for examination of blood pressure without abnormal findings (principal); I10 Essential (primary) hypertension; R73.03 Prediabetes; Z79.899 Other long term (current) drug therapy; E74.818 Other disorders of glucose transport | CPT/HCPCS: 96127; 99212 ==

== ENCOUNTER 2025-04-01 15:09 | Outpatient (AMB) | payer MEDICARE, OTHER, SELFPAY ==
[2025-04-01 15:10] VITALS: BP 114/60; PULSE 85; O2SAT 96; BMI 31.4
--- NOTE | 2025-04-01 15:10 | HO.NEPHOV ---
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 Accompanied by: Self / Same As Patient Allergies acetaminophen (From Tylenol PM) Allergy (Mild, Verified 04/01/25 15:11) Unknown diphenhydramine (From Tylenol PM) Allergy (Mild, Verified 04/01/25 15:11) Unknown Medication List - Last Reconciled 04/01/25 by Xavier Ernst MD amlodipine 5 mg PO DAILY aspirin 81 mg PO DAILY atorvastatin 80 mg PO DAILY ezetimibe 10 mg PO DAILY finasteride 5 mg PO .MWF 90 days isosorbide mononitrate ER 30 mg PO DAILY nitroglycerin 0.4 mg sublingual PRN omeprazole 20 mg PO BID HPI Comments Details: - The patient is a 75-year-old male presenting with glucosuria - Jardiance was prescribed by cardiology - Primary care physician recommended stopping Jardiance due to suspected kidney issues. - Off Jardiance since March 06; - No diabetes history; A1c was 5.9. [facility] Medical History (Updated 03/13/25 @ 13:09 by Norma Alba PA-C) Glucose found in urine on examination Prediabetes Renal glycosuria CAD (coronary artery disease) GERD (gastroesophageal reflux disease) High cholesterol Hypertension Arthritis Surgical History History of esophagogastroduodenoscopy (EGD) (~02/10/14) History of colonoscopy (~02/10/14) Family History Father No problems noted. Mother No problems noted. Social History Housing: House Alcohol intake: current Alcohol intake frequency: holidays/special occasions only Patient Tobacco Use Status: Never used Tobacco service: No Current occupational status: retired Cognitive needs: No Hearing needs: No Vision needs: Yes (rx glasses) Review of Systems Const Denies fever(s) and Denies weight loss Card Denies chest pain Resp Denies cough and Denies hemoptysis GI Denies abdominal pain, Denies diarrhea and Denies nausea Musc Denies back pain Neuro Denies focal weakness Physical Exam Vital Signs: Last Vital Signs Pulse 85 04/01/25 15:10 BP 114/60 04/01/25 15:10 Pulse Ox 96 04/01/25 15:10 Oxygen Delivery Method Room Air 04/01/25 15:10 BMI result Body Mass Index 31.4 Comfortable Neck supple no JVD. Lungs entry equal no rales. Heart S1-S2 heard no gallop or rub. Abdomen soft nontender. Neuro alert awake oriented. No asterixis. Extremities no edema. Results Reviewed Nephrology Results: Hgb, (14.0-18.0) 14.3 g/dl 02/04/25 WBC, (4.8-10.8) 5.2 X10*3/uL 02/04/25 Plt Count, (160-400) 150 X10*3/uL L 02/04/25 Sodium, (135-145) 142 mmol/L 02/04/25 Potassium, (3.3-5.1) 4.2 mmol/L 02/04/25 Chloride, (96-108) 109 mmol/L H 02/04/25 Carbon Dioxide, (22-29) 25 mmol/L 02/04/25 BUN, (9-16) 24 mg/dL H 02/04/25 Creatinine, (0.5-1.4) 1.12 mg/dL 02/04/25 Calcium, (8.4-10.2) 9.2 mg/dL 02/04/25 Urine Protein, (Neg-Trace) Negative mg/dL 02/07/25 Assessment & Plan Assessment & Plan (1) Hypertension: Code(s): I10 - Essential (primary) hypertension Category: Medical Plan Hypertension Blood pressure well controlled. Encouraged him to stay on low-sodium diet Glycosuria. I believe the glycosuria is secondary to the use of Jardiance. He has not taken Jardiance for the last 4 weeks. I will recheck urinalysis today to confirm he does not have glycosuria after discontinuing Jardiance. If he has glycosuria at this time even without the Jardiance then he needs further workup. If he does not have glycosuria I will restart Jardiance. Renal function is acceptable for his age with a serum creatinine of 1.12 mg/dL. I have answered all his questions he returned to office in the next few weeks. Orders: Orders UA and rflx microscopic Today E74.818 - Other disorders of glucose transport Sodium Urine Random 2 Weeks E74.818 - Other disorders of glucose transport Total Protein Urine Random Today E74.818 - Other disorders of glucose transport Creatinine Urine Today E74.818 - Other disorders of glucose transport Coding Level of Care Code New Pt Level 4 (23055) Diagnoses Hypertension I10
--- OUTSIDE RECORDS SUMMARY | 2025-04-01 19:35 | XMS_ITS | Encounter Summary ---
Author Organization [facility] Address [address] [place] [address] Phone Care Team Providers Care Aircraft Quality Control Inspector Name Role Phone Dean Rivera MD Primary Care Provider [phone] Uli Mcgraw MD Unavailable [phone] James Grijalva MD Primary Care Provid er Encounter Details Date Type Department Care Team (Late Contact Info) Description 06/26/2024 Procedure Pass Echo [facility] [place] [place], [place] [id number] Social History Tobacco Use Types Packs/Day Years [...] Department Care Team (Late Contact Info) Description 09/01/2025 9:00 AM EDT Office Visit [facility] [address] [facility] 3rd Floor, [address] [place] [address] Diaz Sorto MD [address] [facility], [address] [address] [email or web address] documented as of this encounter Visit Diagnoses Not on filedocumented in this encounter Care Teams Aircraft Quality Control Inspector Relationship Specialty Start Date End Date Dean Rivera MD [address] [place] [id number] PCP - General 03/23/17 12/10/24 James Grijalva MD [address] [place] [address] PCP - General Internal Medicine 12/11/24 Uli Mcgraw MD [address] [place] [phone] [email or web address] Historical LMR Provider 03/23/17 documented as of this encounter Additional Source Comments The information contained in this document represents components of the legal health record. It is not the complete legal health record.[facility]
--- OUTSIDE RECORDS SUMMARY | 2025-04-01 19:35 | XMS_ITS | Clinical Summary ---
Author Organization [facility] Address [address] [place] [address] Phone Care Team Providers Care Inpatient Nursing Aide Name Role Phone Uli Mcgraw MD Unavailable [phone] James Grijalva MD Primary Care Provid er Allergies Active Allergy Reactions Criticality Noted Date Comments Codeine 04/11/2017 Medications aspirin 81 MG EC tablet Take 81 mg by mouth daily. Active nitroglycerin (NITROSTAT) 0.4 MG SL tablet daily as needed. 09/29/19 22 Active finasteride (PROSCAR) 5 mg tablet Take 1 tablet by mouth every morning. 10/14/19 23 Active omeprazole (PRILOSEC) 20 MG capsule Take 1 capsule by mouth 2 (two) times a day. 11/20/19 24 Active amoxicillin (AMOXIL) 500 MG capsule TAKE 4 CAPSULES BY MOUTH 1 HOUR PRIOR TO APPOINTMENT 04/13/20 24 Active amLODIPine (NORVASC) 5 MG tablet Take 1 tablet (5 mg total) by mouth daily. 90 tablet 3 06/26/19 25 Active isosorbide mononitrate (IMDUR) 30 MG 24 hr tabletIndicati ons:Coronary artery disease involving prairie band coronary artery of prairie band heart without angina pectoris TAKE 1 TABLET(30 MG) BY MOUTH DAILY 90 tablet 3 07/10/19 25 Active ezetimibe (ZETIA) 10 mg tabletIndicati ons:Medication refill TAKE 1 TABLET(10 MG) BY MOUTH DAILY 90 tablet 3 12/17/19 25 Active empagliflozin (JARDIANCE) 10 mg tablet Take 1 tablet (10 mg total) by mouth daily. 90 tablet 3 01/24/20 25 Active albuterol 90 mcg/actuation inhaler Inhale 2 puffs into the lungs every 6 (six) hours as needed for wheezing. 18 g 4 02/19/20 25 Active atorvastatin (LIPITOR) 80 MG tabletIndicati ons:Medication refill TAKE 1 TABLET(80 MG) BY MOUTH DAILY 90 tablet 3 03/31/20 25 Active atorvastatin (LIPITOR) 80 MG tabletIndicati ons:Medication refill TAKE 1 TABLET(80 MG) BY MOUTH DAILY 90 tablet 3 03/26/20 24 025 Discontinued sulindac (CLINORIL) 150 MG tablet 1 tablet with food Orally QD as needed 025 Discontinued(N o longer taking) Active Problems Problem Noted Date Diagnosed Date Essential hypertension 09/12/2018 Assessment & Plan (03/03/2025 9:24 AM EDT): Blood pressure today 156/78 elevated. Patient educated on HTN pathophysiology, htn medication, importance of low salt DASH heart healthy diet, exercise and home B/P monitoring. Advised if home blood pressure readings are higher than 130/80 to call the office. Patient will continue on Imdur 30 mg daily and amlodipine 5 mg daily. Assessment & Plan (01/23/2025 9:44 AM EDT): [...] present therapy. Coronary artery disease invo lving prairie band coronary artery of prairie band heart without angina pectoris 04/11/2017 Overview (09/24/2019): 06/2004 PCI DEVAN X 2 LAD 06/23/2018 PCI STEMI DEVAN Cfx;; RCA 60-70% 06/24/2018 ECHO inferior mild hypokinesis, EF 55-60, 1+ AI 04/05/2019 ECHO 60-65%; DD1; 1+AI; NO WMA Assessment & Plan (03/03/2025 9:23 AM EDT): Complex two-vessel disease and considered too high risk for further PCI. It was reported that patient may benefit from a CABG if he has breakthrough anginal symptoms in the future. On exam today patient's shortness of breath has significantly improved and he tells me he is back to his baseline. Tells me he is able to walk up 2 flights of stairs without anginal symptoms. He has followed up with pulmonary diagnosed him with mild asthma and he continues to use his albuterol with good effect. His most recent echo that was done in December 2024 showed new diastolic dysfunction compared to his prior echo back in 2021. I started patient on the Jardiance since he tells me his shortness of breath has improved. At today's visit he is denying anginal symptoms. It was also reported if he has [...] less than 55. Most recent LDL 67. Would like to touch base with Dr. Phelan in regards to PCSK9 inhibitors. Assessment & Plan (01/23/2025 9:49 AM EDT): [...] metoprolol. He will begin cardiac rehab at [facility]. I will have him return in 3 [...] Encounters Date Type Department Care Team Description 03/28/2025 Refill [facility] [address], [address] [place] [address] Diaz Sorto MD Medication Refill 03/03/2025 9:00 AM EDT Office Visit [facility] [address], [address] [place] [address] Elvi Espitia DNP Coronary artery disease involving prairie band coronary artery of prairie band heart without angina pectoris (Primary Dx); Essential hypertension 02/18/2025 2:30 PM EDT Office Visit [facility] [address], [address] [place] [address] Hill Navarrete MD Wheezing (Primary Dx); Mild intermittent asthma without complication 01/27/2025 Telephone [facility] [address], [address] [place] [address] Elvi Espitia DNP 01/27/2025 Orders Only [facility] [address], [address] [place] [address] Elvi Espitia DNP 01/23/2025 9:30 AM EDT Office Visit [facility] [address] [facility], [address] [place] [address] Elvi Espitia DNP Essential hypertension (Primary Dx); Coronary artery disease involving prairie band coronary artery of prairie band heart without angina pectoris 01/23/2025 Telephone [facility] [address], [address] [place] [address] Elvi Espitia DNP from Last 3 Months Immunizations Immunization Administration [...] Sign Reading Time Taken Comments Blood Pressure 156/78 03/03/2025 9:02 AM EDT Pulse 61 03/03/2025 9:02 AM EDT Temperature - - Respiratory Rate - - Oxygen Saturation 96% 03/03/2025 9:02 AM EDT Inhaled Oxygen Concentration - - Weight 98 kg (216 lb) 03/03/2025 9:02 AM EDT Height 177.8 cm (5' 10 ) 03/03/2025 9:02 AM EDT Body Mass Index 30.99 03/03/2025 9:02 AM EDT Plan of Treatment Upcoming Encounters Date Type Department Care Team (Late st Contact Info) Description 09/01/2025 9:00 AM EDT Office Visit [facility] [address] Floor, [address] [place], [place] [phone] Diaz Sorto MD [address] [facility], [address] [place] [address] Health Maintenance Due Date Last Done Comments Adult Td,Tdap Booster 1950 DEPRESSION SCREENING 1961 HEPATITIS C SCREENING 1967 ZOSTER VACCINES (1 of 2) 1999 PNEUMOCOCCAL VACCINES (50+ years) (2 of 2 - PPSV23) 02/27/2019 02/27/2018 RSV VACCINE (1 - 1-dose 75+ series) 2024 INFLUENZA VACCINE (#1) 2025 , 03/18/2022, 03/18/2022, Additional history exists COVID-19 VACCINE (3 - 2024- season) 2025 03/19/2023, 08/29/2020 BLOOD PRESSURE 08/31/2025 03/03/2025 SMOKING STATUS SCREENING (Once After 26 Yrs) Completed 03/03/2025 HEPATITIS A VACCINES Aged Out No long [...] this topic Medical Devices Not on file Insurance MEDICARE PART A & B [place] MED[place] MEDICARE PART A & [place] MED[place] SU[place] MEDICARE PART A & B [place] MEDICARE SUPPLEMENT MEDICARE PART A & [place] MED[place] SUPPLE[place] MEDICARE PART A & [place] MED[place] SUPPLE[place] MEDICARE PART A & [place] MED[place] SUPPLE[place] MEDICARE PART A & B [place] MED[place]ARE SUPPLE[place] MEDICARE PART A & [place] MED[place] SUPPLE[place] MEDICARE PART A & B [place] MED[place] SUPPLE[place] Care Teams Inpatient Nursing Aide Relationship Specialty Start Date End Date James Grijalva MD [address] [place] [id number] PCP - General Internal Medicine 12/11/24 Uli Mcgraw MD [address] [place] [address] [email or web address] Historical LMR Provider 03/23/17 Additional Source Comments The information contained in this document represents components of the legal health record. It is not the complete legal health record.[facility]
--- OUTSIDE RECORDS SUMMARY | 2025-04-01 19:35 | XMS_ITS | Encounter Summary ---
Author Organization [facility] Address [address] [facility] [address] [place] [address] Phone Care Team Providers Care Regional Director Of Admissions Name Role Phone Uli Mcgraw MD Unavailable [phone] James Grijalva MD Primary Care Provid er Reason for Visit * Reason Comments Medication Refill Encounter Details Date Type Department Care Team (Late st Contact Info) Description 03/28/2025 Refill [facility] [address] [place] [address] 3rd Floor, [address] [place] [address] Diaz Sorto MD [address] [facility], [address] [address] [email or web address] Medication Refill Social History Tobacco Use Types Packs/Day Years [...] on file documented as of this encounter Progress Notes * Maryan Michelle MA - 03/31/2025 8:17 AM EDT RX REVIEWED documented in this encounter Plan of Treatment Upcoming Encounters Date Type Department Care Team (Late st Contact Info) Description 09/01/2025 9:00 AM EDT Office Visit [facility] [address] [place] [address] [address]rd Floor, [address] [place] [address] Diaz Sorto MD [address] [place] [address], [address] [address] [email or web address] documented as of this encounter Visit Diagnoses Diagnosis Medication refill Issue of repeat prescriptions documented in this encounter Care Teams Regional Director Of Admissions Relationship Specialty Start Date End Date James Grijalva MD [address] [place] [id number] PCP - General Internal Medicine 12/11/24 Uli Mcgraw MD [address] [place] [address] [email or web address] Historical LMR Provider 03/23/17 documented as of this encounter Additional Source Comments The information contained in this document represents components of the legal health record. It is not the complete legal health record.[facility]
--- OUTSIDE RECORDS SUMMARY | 2025-04-01 19:35 | XMS_ITS | Patient Health Record ---
Author Organization [facility] Address [address] [place] [address] Care Team Providers Care Tutoring Clinician Name Role Phone MARRY, TANIA Primary Care Provider Matthew Romero Unavailable [phone] Allergies Allergen (clinical drug ingredient) Drug/Non Drug Allergy documented on EMR Reaction Allergy Type Onset Date Status Tylenol/Codeine #3 Unknown Drug Allergy Active Reason For Referral No Information Medications Medication SIG (Take, Route, Frequency, Duration) Notes Start Date End Date Status Isosorbide Mononitrate ER 30 MG 1 tablet in the morning Orally Once a day Active Aspir-81 81 MG 1 tablet Orally Once a day 01/14/2014 Active Atorvastatin Calcium 80 MG 1 tablet Orally Once a day Active ZyrTEC Active Brilinta 90 MG 1 tablet Orally Not-Taking Omeprazole 20 MG 1 capsule Orally twi ce a day; Duration: 90 Active Sulindac 150 MG 1 tablet with food Orally QD as needed Not-Taking Jardiance 10 MG 1 tablet Orally Once a day Active amLODIPine Besylate 5 MG 1 tablet Orally Once a day Active Ezetimibe 10 MG 1 tablet Orally Once a day Active Finasteride 5 MG 1 tablet Orally Once a day Active Immunizations Vaccine Route Administration Date Status Comme nts Influenza Unknown 03/05/2019 Administered Influenza Unknown 03/05/2025 Administered Social History AUDIT-C (Standard) Question Answer Notes Did you have a drink containing alcohol in the p ast year? No Points 0 Interpretation Negative Section Notes: Nonsmoker; no significant al cohol Nonsmoker; no significant al cohol Nonsmoker; no significant al cohol Nonsmoker; no significant al cohol Nonsmoker; no significant al cohol Problems Problem Type SNOMED Code ICD Code Onset Dates Problem Status W/U Status Risk Notes Problem Screening for malignant neoplasm of colon (220095905) Encounter for screening for malignant neoplasm of colon (Z12.11) Active confirmed Problem History of adenomatous polyp of colon (005056138) History of adenomatous polyp of colon (Z86.010) Active confirmed Problem Gastroesophageal reflux disease with esophagitis (894304444) Gastroesophageal reflux disease with esophagitis (K21.0) Active confirmed Problem Camejo's esophagus (914617129) Barretts esophagus without dysplasia (K22.70) Active confirmed Vital Signs Temperature 98.6 degrees Fahrenheit 03/07/2025 Blood pressure diastolic 01 mm Hg 03/07/2025 Height 71 in 03/07/2025 Blood pressure systolic 001 mm Hg 03/07/2025 Weight 216 lbs 03/07/2025 BMI 30.12 kg/m2 03/07/2025 Procedures Procedure Date Ordered Date Performed Result Body Sit e UPPER GI ENDOSCOPY 03/07/2025 N/A COLONOSCOPY 03/07/2025 N/A Encounters Encounter Location Date Provider Diagnosis [facility] [address] [place] [address] 03/07/2025 Matthew Sanches Gastroesophageal ref lux disease with esophagitis K21.0 ; Camejo''s esophagus without dysplasia K22.70 ; History of adenomatous polyp of colon Z86.010 and Encounter for screening for malignant neoplasm of colon Z12.11 Assessments Encounter Date Diagnosis (ICD Code) Assessment Notes Treatment Notes Treatment Clinical Notes Section Notes 03/07/2025 Gastroesophageal reflux disease with esophagitis (ICD-10 - K21.0) Overall, Beverly appears well. Given his age, good clinical appearance, previous history of a tubular adenoma of the colon, and his last colonoscopy being well over 5 years ago, I did recommend a follow-up colonoscopy for further screening purposes. We did review the rationale for this in regard to colorectal cancer prevention. He will also undergo a follow-up upper endoscopy for evaluation of the chronic gastroesophageal reflux and history of Camejo's esophagus. We did review the rationale for that in regard to the theoretical increased risk of esophageal cancer in patients with Camejo's esophagus. Full consent has been obtained from him for both procedures, including risks of bleeding and perforation. The procedures will be done with monitored anesthesia care. He was given the below instructions regarding adjustment of his medications for the procedure. We will obtain clearance from his welder setter electron beam machine for the procedure as well. Beverly was comfortable with this plan. Thank you again for allowing me to participate in Cindys care. I shall continue to keep you advised of his progress. 03/07/2025 Camejo''s esophagus without dysplasia (ICD-10 - K22.70) Overall, Beverly appears well. Given his age, good clinical appearance, previous history of a tubular adenoma of the colon, and his last colonoscopy being well over 5 years ago, I did recommend a follow-up colonoscopy for further screening purposes. We did review the rationale for this in regard to colorectal cancer prevention. He will also undergo a follow-up upper endoscopy for evaluation of the chronic gastroesophageal reflux and history of Camejo's esophagus. We did review the rationale for that in regard to the theoretical increased risk of esophageal cancer in patients with Camejo's esophagus. Full consent has been obtained from him for both procedures, including risks of bleeding and perforation. The procedures will be done with monitored anesthesia care. He was given the below instructions regarding adjustment of his medications for the procedure. We will obtain clearance from his welder setter electron beam machine for the procedure as well. Beverly was comfortable with this plan. Thank you again for allowing me to participate in Cindys symone. I shall continue to keep you advised of his progress. 03/07/2025 History of adenomatous polyp of colon (ICD-10 - Z86.010) Overall, Beverly appears well. Given his age, good clinical appearance, previous history of a tubular adenoma of the colon, and his last colonoscopy being well over 5 years ago, I did recommend a follow-up colonoscopy for further screening purposes. We did review the rationale for this in regard to colorectal cancer prevention. He will also undergo a follow-up upper endoscopy for evaluation of the chronic gastroesophageal reflux and history of Camejo's esophagus. We did review the rationale for that in regard to the theoretical increased risk of esophageal cancer in patients with Camejo's esophagus. Full consent has been obtained from him for both procedures, including risks of bleeding and perforation. The procedures will be done with monitored anesthesia care. He was given the below instructions regarding adjustment of his medications for the procedure. We will obtain clearance from his welder setter electron beam machine for the procedure as well. Beverly was comfortable with this plan. Thank you again for allowing me to participate in Beverly's care. I shall continue to keep you advised of his progress. 03/07/2025 Encounter for screening for malignant neoplasm of colon (ICD-10 - Z12.11) Overall, Beverly appears well. Given his age, good clinical appearance, previous history of a tubular adenoma of the colon, and his last colonoscopy being well over 5 years ago, I did recommend a follow-up colonoscopy for further screening purposes. We did review the rationale for this in regard to colorectal cancer prevention. He will also undergo a follow-up upper endoscopy for evaluation of the chronic gastroesophageal reflux and history of Camejo's esophagus. We did review the rationale for that in regard to the theoretical increased risk of esophageal cancer in patients with Camejo's esophagus. Full consent has been obtained from him for both procedures, including risks of bleeding and perforation. The procedures will be done with monitored anesthesia care. He was given the below instructions regarding adjustment of his medications for the procedure. We will obtain clearance from his welder setter electron beam machine for the procedure as well. Beverly was comfortable with this plan. Thank you again for allowing me to participate in Beverly's care. I shall continue to keep you advised of his progress. Plan Of Treatment Pending Test Test Name Order Date UPPER GI ENDOSCOPY 03/07/2025 COLONOSCOPY 03/07/2025 Future Test Test Name Order Date UPPER GI ENDOSCOPY 01/14/2014 COLONOSCOPY 01/14/2014 UPPER GI ENDOSCOPY 04/12/2019 COLONOSCOPY 04/12/2019 Next Appt Details Provider Name:Matthew Yesenia Sanches , 05/19/2025 01:40:00 PM, [address] [place] [address] , [place], [place], [id number], Insurance Providers Payer Name Payer Address Payer Phone Subscriber Number Group Number Insured Name Patient Relationship to Insured Coverage Start Date Coverage End Date MEDICARE OF [employer] [address] [place] [address] [id number] BEVERLY OROSCO Self - patient is the insured 4 [place] [employer] [address] [place]JUN RUSH [phone] [id number] BEVERLY OROSCO Self - patient is the insured Medical (General) History Medical History History ICD Code Denies DM,CVA,Lung disease,renal disease Coronary artery disease- 2 s tents placed in 2004; then a 3rd stent placed in 2018 Hypertension Negative screening colonoscopy in 01/[address] Longoria Hyperlipidemia GERD- EGD in 02/2014-erosive esophagitis, small area of Camejo's without dysplasia, small HH Tubular adenoma removed in 02/2014 with s creening colonoscopy [place] in 06/2018 with placement of a single stent Surgical History Surgery Date(Month/Year) Lower back--spinal stenosis Left knee arthroscopy Right rotator cuff
--- OUTSIDE RECORDS SUMMARY | 2025-04-01 19:35 | XMS_ITS | Encounter Summary ---
Author Organization [facility] Address [address] [place] [address] Phone Care Team Providers Care Environmental Laboratory Technician Name Role Phone Dean Rivera MD Primary Care Provider [phone] Uli Mcgraw MD Unavailable [phone] James Grijalva MD Primary Care Provid er Encounter Details Date Type Department Care Team (Late st Contact Info) Description 07/22/2021 Procedure Pass Echo Lab [address] [place], [place] [id number] Social History Tobacco Use Types Packs/Day Years [...] Description 09/01/2025 9:00 AM EDT Office Visit [facility] [address] [place] [address] 3rd Floor, [address] [place], [place] [phone] Diaz Sorto MD 22 [facility], [address] [address] documented as of this encounter Visit Diagnoses Not on filedocumented in this encounter Care Teams Environmental Laboratory Technician Relationship Specialty Start Date End Date Dean Rivera MD [address] [place] [address] PCP - General 03/23/17 12/10/24 James Grijalva MD [address] [address] PCP - General Internal Medicine 12/11/24 Uli Mcgraw MD [address] [address] [email or web address] Historical LMR Provider 03/23/17 documented as of this encounter Additional Source Comments The information contained in this document represents components of the legal health record. It is not the complete legal health record.[facility]
--- OUTSIDE RECORDS SUMMARY | 2025-04-01 19:35 | XMS_ITS | Encounter Summary ---
Author Organization [facility] Address [address] [place] [address] Phone Care Team Providers Care Branch Chief Name Role Phone Dean Rivera MD Primary Care Provider [phone] Dean Rivera MD Unavailable Uli Mcgraw MD Unavailable [phone] James Grijalva MD Primary Care Provid er Encounter Details Date Type Department Care Team (Latest Contact Info) Description 04/07/2017 Transcribe Orders [facility] [address] [place] [address] [place] [address] Uli Mcgraw MD [address] [place] [address] [email or web address] Pure hypercholesterolemia (Primary Dx) Social History Tobacco [...] Description 09/01/2025 9:00 AM EDT Office Visit [facility] [address] [place] [address] 3rd Floor, [address] [place] [address] Diaz Sorto MD 22 [facility], [address] [place], [place] [phone] [email or web address] documented as of this encounter Results * LFTs (hepatic panel) (04/07/2017 8:40 AM EDT) ALKALINE PHOSPHATASE 50 39 - 117 U/L [facility] TOTAL BILIRUBIN 0.5 0 - 1.2 mg/dL [facility] DIRECT BILIRUBIN <0.2 0 - 0.3 mg/dL [facility] Bilirubin (Indirect) NOT CALCULATED 0 - 1.5 mg/dL [facility] AST 25 0 - 37 U/L [facility] ALT 22 0 - 40 U/L [facility] TOTAL PROTEIN 6.6 6.5 - 8.0 g/dL [facility] ALBUMIN 4.2 3.9 - 4.8 g/dL [facility] GLOBULIN 2.4 1 - 4.8 g/dL [facility] A/G Ratio 1.75 1.00 - 4.80 RATIO [facility] Blood 04/07/2017 8:40 AM EDT 04/07/2017 8:42 AM EDT us Uli Mcgraw MD LAB BLOOD ORDERABLES Edited Res ult - Final [address] [address] * (ABNORMAL) Lipid panel (04/07/2017 8:40 AM EDT) Pathologist [facility] HDL 46 mg/dL [facility] Comment: Interpretation: Risk Level Males Decreased >45 mg/dL Average 40-45 mg/dL Increased <40 mg/dL CHOLESTEROL 127 0 - 240 mg/dL [facility] TRIGLYCERIDES 88 30 - 160 mg/dL [facility] LDL 63 50 - 129 mg/dL [facility] Comment: LDL levels in terms of risk for coronary heart disease: <100 mg/dL: Optimal 100-129 mg/dL: Near or above optimal 130-159 mg/dL: Borderline high 160-189 mg/dL: High >190 mg/dL: Very High CARDIAC RISK RATIO 2.8(L) 3.4 - 5.0 C [facility] Blood 04/07/2017 8:40 AM EDT 04/07/2017 8:42 AM EDT us Uli Mcgraw MD LAB BLOOD ORDERABLES Final Resu lt Performing Organization Address [facility]/ZIP Co de Phone Number [address] [address] * (ABNORMAL) Basic metabolic panel (04/07/2017 8:40 AM EDT) SODIUM 141 133 - 146 mmol/L [facility] CHLORIDE 104 96 - 108 mmol/L [facility] POTASSIUM 4.7 3.3 - 5.1 mmol/L [facility] CO2 27 21 - 35 mmol/L [facility] BUN 23(H) 6 - 19 mg/dL [facility] CREATININE 0.90 0.5 - 1.5 mg/dL [facility] GLUCOSE 101(H) 70 - 99 mg/dL [facility] CALCIUM 9.2 8.4 - 10.3 mg/dL [facility] EGFR >60 >60 mL/min/1.7 3m2 [facility] Comment:Abnormal if <60. If patient is -[place], multiply the result by 1.21. ANION GAP 15 10 - 20 mmol/L [facility] Blood 04/07/2017 8:40 AM EDT 04/07/2017 8:42 AM EDT us Uli Mcgraw MD LAB BLOOD ORDERABLES Final Resu lt Performing Organization Address City/[facility]/ZIP Co de Phone Number [address] [address] documented in this encounter Visit Diagnoses Diagnosis Pure hypercholesterolemia- Primary documented in this encounter Care Teams Branch Chief Relationship Specialty Start Date End Date Dean Rivera MD [address] [place] [address] PCP - General 03/23/17 12/10/24 James Grijalva MD [address] [place] [address] PCP - General Internal Medicine 12/11/24 Dean Rivera MD [address] [place] [address] Historical LMR Provider 03/23/17 2 Uli Mcgraw MD [address] [place] [address] [email or web address] Historical LMR Provider 03/23/17 documented as of this encounter Additional Source Comments The information contained in this document represents components of the legal health record. It is not the complete legal health record.[facility]
== END 2025-04-01 15:26 | disposition home or self-care (01) ==
LOC: HO.HKA 15:09
PROVIDERS: PCP Internal Medicine; Referring Provider Physician Assistant Medical; Visit Provider Internal Medicine Hypertension Specialist
DX: I10 Essential (primary) hypertension (principal)
CPT/HCPCS: 99204

== ENCOUNTER → 2025-04-01 15:09 | Outpatient (BNVA) | payer MEDICARE, OTHER, SELFPAY | PROVIDERS: PCP Internal Medicine; Referring Provider Physician Assistant Medical; Visit Provider Internal Medicine Hypertension Specialist | DX: I10 Essential (primary) hypertension (principal); Z79.84 Long term (current) use of oral hypoglycemic drugs | CPT/HCPCS: 99202 ==

== ENCOUNTER 2025-04-02 11:55 | Outpatient (REF) | payer MEDICARE, OTHER, SELFPAY ==
[2025-04-02 13:17] LABS: Appearance Urine Clear; Glucose Urine UA Negative (Negative); PH 6.0 (5.0-9.0); Specific Gravity - Urine 1.010 (1.005-1.025)
[2025-04-02 14:10] LABS: Total Protein Urine Random < 7 mg/dL (<12)
--- OUTSIDE RECORDS SUMMARY | 2025-04-02 15:21 | XMS_ITS | Encounter Summary ---
Author Organization [facility] Address [address] [facility] [facility] [address] [place] [address] Phone Care Team Providers Care Auto Technician Name Role Phone Dean Rivera MD Primary Care Provider [phone] Dean Rivera MD Unavailable Uli Mcgraw MD Unavailable [phone] James Grijalva MD Primary Care Provid er Encounter Details Date Type Department Care Team (Latest Contact Info) Description 04/07/2017 Transcribe Orders [facility] [address] [place] [address] [place] [address] Uli Mcgraw MD [address] [place] [address] [email or web address] Pure hypercholesterolemia (Primary Dx) Social [...] Description 09/01/2025 9:00 AM EDT Office Visit [facility] [address] [place] [address] 3rd Floor, [address] [place] [address] Diaz Sorto MD 22 [facility], [address] [place], [place] [phone] [email or web address] documented as of this encounter Results * LFTs (hepatic panel) (04/07/2017 8:40 AM EDT) ALKALINE PHOSPHATASE 50 39 - 117 U/L [facility] TOTAL BILIRUBIN 0.5 0 - 1.2 mg/dL [facility] DIRECT BILIRUBIN <0.2 0 - 0.3 mg/dL [facility] Bilirubin (Indirect) NOT CALCULATED 0 - 1.5 mg/dL [facility] AST 25 0 - 37 U/L [facility] ALT 22 0 - 40 U/L [facility] TOTAL PROTEIN 6.6 6.5 - 8.0 g/dL [facility] ALBUMIN 4.2 3.9 - 4.8 g/dL [facility] GLOBULIN 2.4 1 - 4.8 g/dL [facility] A/G Ratio 1.75 1.00 - 4.80 RATIO [facility] Blood 04/07/2017 8:40 AM EDT 04/07/2017 8:42 AM EDT us Uli Mcgraw MD LAB BLOOD ORDERABLES Edited Res ult - Final [address] [address] * (ABNORMAL) Lipid panel (04/07/2017 8:40 AM EDT) Pathologist [facility] HDL 46 mg/dL [facility] Comment: Interpretation: Risk Level Males Decreased >45 mg/dL Average 40-45 mg/dL Increased <40 mg/dL CHOLESTEROL 127 0 - 240 mg/dL [facility] TRIGLYCERIDES 88 30 - 160 mg/dL [facility] LDL 63 50 - 129 mg/dL [facility] Comment: LDL levels in terms of risk for coronary heart disease: <100 mg/dL: Optimal 100-129 mg/dL: Near or above optimal 130-159 mg/dL: Borderline high 160-189 mg/dL: High >190 mg/dL: Very High CARDIAC RISK RATIO 2.8(L) 3.4 - 5.0 C [facility] Blood 04/07/2017 8:40 AM EDT 04/07/2017 8:42 AM EDT us Uli Mcgraw MD LAB BLOOD ORDERABLES Final Resu lt Performing Organization Address [facility]/ZIP Co de Phone Number [address] [address] * (ABNORMAL) Basic metabolic panel (04/07/2017 8:40 AM EDT) SODIUM 141 133 - 146 mmol/L [facility] CHLORIDE 104 96 - 108 mmol/L [facility] POTASSIUM 4.7 3.3 - 5.1 mmol/L [facility] CO2 27 21 - 35 mmol/L [facility] BUN 23(H) 6 - 19 mg/dL [facility] CREATININE 0.90 0.5 - 1.5 mg/dL [facility] GLUCOSE 101(H) 70 - 99 mg/dL [facility] CALCIUM 9.2 8.4 - 10.3 mg/dL [facility] EGFR >60 >60 mL/min/1.7 3m2 [facility] Comment:Abnormal if <60. If patient is -Nigerian, multiply the result by 1.21. ANION GAP 15 10 - 20 mmol/L [facility] Blood 04/07/2017 8:40 AM EDT 04/07/2017 8:42 AM EDT us Uli Mcgraw MD LAB BLOOD ORDERABLES Final Resu lt Performing Organization Address City/[facility]/ZIP Co de Phone Number [address] [address] documented in this encounter Visit Diagnoses Diagnosis Pure hypercholesterolemia- Primary documented in this encounter Care Teams Auto Technician Relationship Specialty Start Date End Date Dean Rivera MD [address] [place] [address] PCP - General 03/23/17 12/10/24 James Grijalva MD [address] [place] [address] PCP - General Internal Medicine 12/11/24 Dean Rivera MD [address] [place] [address] Historical LMR Provider 03/23/17 2 Uli Mcgraw MD [address] [place] [address] [email or web address] Historical LMR Provider 03/23/17 documented as of this encounter Additional Source Comments The information contained in this document represents components of the legal health record. It is not the complete legal health record.[facility]
--- OUTSIDE RECORDS SUMMARY | 2025-04-02 15:21 | XMS_ITS | Encounter Summary ---
Author Organization [facility] Address [address] [place] [address] Phone Care Team Providers Care Radiographic Technologist Name Role Phone Dean Rivera MD Primary Care Provider [phone] Uli Mcgraw MD Unavailable [phone] James Grijalva MD Primary Care Provid er Encounter Details Date Type Department Care Team (Late Contact Info) Description 06/26/2024 Procedure Pass Echo Lab [address] [place] [address] Social History Tobacco Use Types Packs/Day Years [...] Description 09/01/2025 9:00 AM EDT Office Visit [facility] [address] [facility] 3rd Floor, [address] [place] [address] Diaz Sorto MD 22 [facility], [address] [address] [email or web address] documented as of this encounter Visit Diagnoses Not on filedocumented in this encounter Care Teams Radiographic Technologist Relationship Specialty Start Date End Date Dean Rivera MD [address] [place] [address] PCP - General 03/23/17 12/10/24 James Grijalva MD [address] [place] [address] PCP - General Internal Medicine 12/11/24 Uli Mcgraw MD [address] [place] [address] [email or web address] Historical LMR Provider 03/23/17 documented as of this encounter Additional Source Comments The information contained in this document represents components of the legal health record. It is not the complete legal health record.[facility]
--- OUTSIDE RECORDS SUMMARY | 2025-04-02 15:21 | XMS_ITS | Encounter Summary ---
Author Organization [facility] Address [address] [facility] [address] [facility] [address] [place] [address] Phone Care Team Providers Care Cut Plug Packer Name Role Phone Uli Mcgraw MD Unavailable [phone] James Grijalva MD Primary Care Provid er Reason for Visit * Reason Comments Medication Refill Encounter Details Date Type Department Care Team (Late st Contact Info) Description 03/28/2025 Refill [facility] [address] [place] [address] 3rd Floor, [address] [place] [address] Diaz Sorto MD 22 [facility], [address] [address] [email or web address] Medication Refill Social History Tobacco Use Types [...] Description 09/01/2025 9:00 AM EDT Office Visit [facility] [address] [place] [address] 3rd Floor, [address] [place] [address] Diaz Sorto MD [address] [place] [address], [address] [address] [email or web address] documented as of this encounter Visit Diagnoses Diagnosis Medication refill Issue of repeat prescriptions documented in this encounter Care Teams Cut Plug Packer Relationship Specialty Start Date End Date James Grijalva MD [address] [place] [address] PCP - General Internal Medicine 12/11/24 Uli Mcgraw MD [address] [place] [address] [email or web address] Historical LMR Provider 03/23/17 documented as of this encounter Additional Source Comments The information contained in this document represents components of the legal health record. It is not the complete legal health record.[facility]
--- OUTSIDE RECORDS SUMMARY | 2025-04-02 15:21 | XMS_ITS | Clinical Summary ---
Author Organization [facility] Address [address] [place] [address] Phone Care Team Providers Care Fuel Cell Battery Technician Name Role Phone Uli Mcgraw MD Unavailable [phone] James Grijalva MD Primary Care Provid [...] 24 hr tabletIndicatio ns:Coronary artery disease involving confederated salish coronary artery of confederated salish heart without angina pectoris TAKE 1 TABLET(30 MG) BY MOUTH DAILY 90 tablet 3 07/10/19 25 Active ezetimibe (ZETIA) 10 mg tabletIndicatio ns:Medication [...] 02/19/20 25 Active atorvastatin (LIPITOR) 80 MG tabletIndicatio ns:Medication refill TAKE 1 TABLET(80 MG) BY MOUTH DAILY 90 tablet 3 03/31/20 25 Active atorvastatin (LIPITOR) 80 MG tabletIndicatio ns:Medication refill TAKE 1 TABLET(80 MG) BY MOUTH DAILY 90 tablet 3 03/26/20 24 025 Discontinued Active Problems Problem Noted Date Diagnosed Date [...] present therapy. Coronary artery disease invo lving confederated salish coronary artery of confederated salish heart without angina pectoris 04/11/2017 Overview (09/24/2019): [...] cath without resulting stent (07/2021) at [facility] [place] Church. Recommendations are to: Continue [...] metoprolol. He will begin cardiac rehab at [facility]. I will have him return in 3 [...] Type Department Care Team Description 03/28/2025 Refill [facility] [address], [address] [place] [address] Diaz Sorto MD Medication Refill 03/03/2025 9:00 AM EDT Office Visit [facility] [address], [address] [place] [address] Elvi Espitia DNP Coronary artery disease involving confederated salish coronary artery of confederated salish heart without angina pectoris (Primary Dx); Essential hypertension 02/18/2025 2:30 PM EDT Office Visit [facility] [address], [address] [place] [address] Hill Navarrete MD Wheezing (Primary Dx); Mild intermittent asthma without complication 01/27/2025 Telephone [facility] [address], [address] [place] [address] Elvi Espitia DNP 01/27/2025 Orders Only [facility] [address], [address] [place] [address] Elvi Espitia DNP 01/23/2025 9:30 AM EDT Office Visit [facility] [address], [address] [place] [address] Elvi Espitia DNP Essential hypertension (Primary Dx); Coronary artery disease involving confederated salish coronary artery of confederated salish heart without angina pectoris 01/23/2025 Telephone [facility] [address], [address] [place] [address] Elvi Espitia DNP from Last 3 Months [...] Description 09/01/2025 9:00 AM EDT Office Visit [facility] [address] [place] [address] 3rd Floor, [address] [place] [address] Diaz Sorto MD 22 [facility], [address] [place] [address] [email or web address] Health Maintenance Due Date Last Done Comments [...] file Insurance MEDICARE PART A & B [place] MED[place] ARJUN RUSH [id number] MEDICARE PART A & B [place] MED[place] AR[place]UN RUSH [id number] MEDICARE PART A & B [place] MED[place] SUPPLE[place] MEDICARE PART A & B [place] MED[place]ARE SUPPLE[place] MEDICARE PART A & B [place] MED[place]ARE SUPPLEMENT MEDICARE PART A & B [place] MED[place]ARE SUPPLEMENT MEDICARE PART A & B [place] MED[place]ARE SUPPLE[place] MEDICARE PART A & B [place] MED[place]ARE SUPPLE[place] MEDICARE PART A & B [place] MEDICARE SUPPLEMENT Care Teams Fuel Cell Battery Technician Relationship Specialty Start Date End Date James Grijalva MD [address] [place] [address] PCP - General Internal Medicine 12/11/24 Uli Mcgraw MD [address] [place] [address] [email or web address] Historical LMR Provider 03/23/17 Additional Source Comments The information contained in this document represents components of the legal health record. It is not the complete legal health record.[facility]
--- OUTSIDE RECORDS SUMMARY | 2025-04-02 15:21 | XMS_ITS | Encounter Summary ---
Author Organization [facility] Address [address] [place] [address] Phone Care Team Providers Care Microbiology Professor Name Role Phone Dean Rivera MD Primary Care Provider [phone] Uli Mcgraw MD Unavailable James Grijalva MD Primary Care Provid er Encounter Details Date Type Department Care Team (Late st Contact Info) Description 07/22/2021 Procedure Pass Echo Lab [address] [place], [place] [id number] Social History Tobacco Use Types Packs/Day Years [...] Description 09/01/2025 9:00 AM EDT Office Visit [facility] [address] [place] [address] 3rd Floor, [address] [place], [place] [id number] Diaz Sorto MD 22 [facility], [address] [address] documented as of this encounter Visit Diagnoses Not on filedocumented in this encounter Care Teams Microbiology Professor Relationship Specialty Start Date End Date Dean Rivera MD [address] [place] [address] PCP - General 03/23/17 12/10/24 James Grijalva MD [address] [address] PCP - General Internal Medicine 12/11/24 Uli Mcgraw MD [address] [address] [email or web address] Historical LMR Provider 03/23/17 documented as of this encounter Additional Source Comments The information contained in this document represents components of the legal health record. It is not the complete legal health record.[facility]
--- OUTSIDE RECORDS SUMMARY | 2025-04-02 15:21 | XMS_ITS | Patient Health Record ---
Author Organization [facility] Address [address] [place] [address] Care Team Providers Care Qa Engineer Name Role Phone MARRY, TANIA Primary Care Provider Matthew Romero Unavailable [phone] Allergies Allergen (clinical drug ingredient) Drug/Non Drug [...] Problem Screening for malignant neoplasm of colon (335059590) Encounter for screening for malignant neoplasm of colon (Z12.11) Active confirmed Problem History of adenomatous polyp of colon (709819821) History of adenomatous polyp of colon (Z86.010) Active confirmed Problem Gastroesophageal reflux disease with esophagitis (450993045) Gastroesophageal reflux disease with esophagitis (K21.0) Active confirmed Problem Camejo's esophagus (408271602) Barretts esophagus without dysplasia (K22.70) Active confirmed [...] N/A Encounters Encounter Location Date Provider Diagnosis [facility] [address] [place] [address] 03/07/2025 Matthew Sanches Gastroesophageal ref lux disease [...] procedure. We will obtain clearance from his product managent intern for the procedure as well. Beverly was [...] procedure. We will obtain clearance from his product managent intern for the procedure as well. Beverly was [...] procedure. We will obtain clearance from his product managent intern for the procedure as well. Beverly was [...] procedure. We will obtain clearance from his product managent intern for the procedure as well. Beverly was [...] Name:Matthew Yesenia Sanches , 05/19/2025 01:40:00 PM, [address] [place] [address] , [place], [place], [id number], Insurance Providers Payer Name Payer Address Payer Phone Subscriber Number Group Number Insured Name Patient Relationship to Insured Coverage Start Date Coverage End Date MEDICARE OF [place] [address] [place] [address] [id number] BEVERLY OROSCO Self - patient is the insured 4 [place] [employer] [address] ARJUN RUSH [id number] BEVERLY OROSCO Self - patient is the [...] removed in 02/2014 with s creening colonoscopy [place] in 06/2018 with placement of a single stent Surgical History Surgery Date(Month/Year) Lower back--spinal stenosis Left knee arthroscopy Right rotator cuff
== END 2025-04-02 11:56 | disposition home or self-care (01) ==
LOC: HO.10HDLNP 11:55
PROVIDERS: Visit Provider Internal Medicine Hypertension Specialist
DX: E74.818 Other disorders of glucose transport (principal)
CPT/HCPCS: 81003; 82570; 84156; 84300

== ENCOUNTER 2025-05-19 11:02 | Day surgery (SDC) | payer MEDICARE, OTHER, SELFPAY ==
--- OUTSIDE RECORDS SUMMARY | 2025-04-24 03:38 | XMS_ITS | Encounter Summary ---
Author Organization [facility] Address [address] [place] [address] Phone Care Team Providers Care Mold Shaker Name Role Phone Dean Rivera MD Primary Care Provider [phone] Uli Mcgraw MD Unavailable [phone] James Grijalva MD Primary Care Provid er Encounter Details Date Type Department Care Team (Late Contact Info) Description 06/26/2024 Procedure Pass Echo Lab [address] [place], [place] [id number] Social History Tobacco Use Types Packs/Day Years [...] Description 09/01/2025 9:00 AM EDT Office Visit [facility] 22 [facility] 3rd Floor, [address] [place] [address] Diaz Sorto MD 22 [facility], [address] [address] [email or web address] documented as of this encounter Visit Diagnoses Not on filedocumented in this encounter Care Teams Mold Shaker Relationship Specialty Start Date End Date Dean Rivera MD [address] [place] [address] PCP - General 03/23/17 12/10/24 James Grijalva MD [address] [place] [address] PCP - General Internal Medicine 12/11/24 Uli Mcgraw MD [address] [place] [address] [email or web address] Historical LMR Provider 03/23/17 documented as of this encounter Additional Source Comments The information contained in this document represents components of the legal health record. It is not the complete legal health record.[facility]
--- OUTSIDE RECORDS SUMMARY | 2025-04-24 03:38 | XMS_ITS | Encounter Summary ---
Author Organization [facility] Address [address] [place] [address] Phone Care Team Providers Care Pest Control Service Sales Agent Name Role Phone Dean Rivera MD Primary Care Provider [phone] Uli Mcgraw MD Unavailable [phone] James Grijalva MD Primary Care Provid er Encounter Details Date Type Department Care Team (Late st Contact Info) Description 07/22/2021 Procedure Pass Echo Lab [address] [place], [place] [phone] Social History Tobacco Use Types Packs/Day Years [...] Description 09/01/2025 9:00 AM EDT Office Visit [facility] [address] [place] [address] [address]rd Floor, [address] [place], [place] [phone] Diaz Sorto MD 22 [facility], [address] [address] documented as of this encounter Visit Diagnoses Not on filedocumented in this encounter Care Teams Pest Control Service Sales Agent Relationship Specialty Start Date End Date Dean Rivera MD [address] [place] [address] PCP - General 03/23/17 12/10/24 James Grijalva MD [address] [address] PCP - General Internal Medicine 12/11/24 Uli Mcgraw MD [address] [address] [email or web address] Historical LMR Provider 03/23/17 documented as of this encounter Additional Source Comments The information contained in this document represents components of the legal health record. It is not the complete legal health record.[facility]
--- OUTSIDE RECORDS SUMMARY | 2025-04-24 03:39 | XMS_ITS | Encounter Summary ---
Author Organization [facility] Address [address] [place] [address] [address] [place] [address] Phone Care Team Providers Care Rebeamer Name Role Phone Dean Rivera MD Primary Care Provider [phone] Dean Rivera MD Unavailable Uli Mcgraw MD Unavailable [phone] James Grijalva MD Primary Care Provid er Encounter Details Date Type Department Care Team (Latest Contact Info) Description 04/07/2017 Transcribe Orders [facility] [address] [place] [address] Uli Mcgraw MD [address] [place] [address] [email or web address] Pure hypercholesterolemia (Primary Dx) Social History Tobacco [...] Description 09/01/2025 9:00 AM EDT Office Visit [facility] [address] [place] [address] 3rd Floor, [address] [place] [address] Diaz Sorto MD 22 [facility], [address] [place], [place] [id number] [email or web address] documented as of this encounter Results * LFTs (hepatic panel) (04/07/2017 8:40 AM EDT) ALKALINE PHOSPHATASE 50 39 - 117 U/L [facility] TOTAL BILIRUBIN 0.5 0 - 1.2 mg/dL [facility] DIRECT BILIRUBIN <0.2 0 - 0.3 mg/dL [facility] Bilirubin (Indirect) NOT CALCULATED 0 - 1.5 mg/dL [facility] AST 25 0 - 37 U/L [facility] ALT 22 0 - 40 U/L [facility] TOTAL PROTEIN 6.6 6.5 - 8.0 g/dL [facility] ALBUMIN 4.2 3.9 - 4.8 g/dL [facility] GLOBULIN 2.4 1 - 4.8 g/dL [facility] A/G Ratio 1.75 1.00 - 4.80 RATIO [facility] Blood 04/07/2017 8:40 AM EDT 04/07/2017 8:42 AM EDT us Uli Mcgraw MD LAB BLOOD BKR ORDERABLES Edited Result - Final Performing Organization Address City/State/[facility] [[email or web address]] Co de Phone Number [address] [phone] * (ABNORMAL) Lipid panel (04/07/2017 8:40 AM EDT) Pathologist [facility] HDL 46 mg/dL [facility] Comment: Interpretation: Risk Level Males Decreased >45 mg/dL Average 40-45 mg/dL Increased <40 mg/dL CHOLESTEROL 127 0 - 240 mg/dL [facility] TRIGLYCERIDES 88 30 - 160 mg/dL [facility] LDL 63 50 - 129 mg/dL [facility] Comment: LDL levels in terms of risk for coronary heart disease: <100 mg/dL: Optimal 100-129 mg/dL: Near or above optimal 130-159 mg/dL: Borderline high 160-189 mg/dL: High >190 mg/dL: Very High CARDIAC RISK RATIO 2.8(L) 3.4 - 5.0 [facility] Blood 04/07/2017 8:40 AM EDT 04/07/2017 8:42 AM EDT Uli Mcgraw MD LAB BLOOD BKR ORDERABLES Final Result Performing Organization Address [facility] [[email or web address]] Co de Phone Number [address] [address] * (ABNORMAL) Basic metabolic panel (04/07/2017 8:40 AM EDT) SODIUM 141 133 - 146 mmol/L [facility] CHLORIDE 104 96 - 108 mmol/L [facility] POTASSIUM 4.7 3.3 - 5.1 mmol/L [facility] CO2 27 21 - 35 mmol/L [facility] BUN 23(H) 6 - 19 mg/dL [facility] CREATININE 0.90 0.5 - 1.5 mg/dL [facility] GLUCOSE 101(H) 70 - 99 mg/dL [facility] CALCIUM 9.2 8.4 - 10.3 mg/dL [facility] EGFR >60 >60 mL/min/1.7 3m2 [facility] Comment:Abnormal if <60. If patient is -[place], multiply the result by 1.21. ANION GAP 15 10 - 20 mmol/L [facility] Blood 04/07/2017 8:40 AM EDT 04/07/2017 8:42 AM EDT Uli Mcgraw MD LAB BLOOD BKR ORDERABLES Final Result Performing Organization Address [facility] [[email or web address]] Co de Phone Number [address] [address] documented in this encounter Visit Diagnoses Diagnosis Pure hypercholesterolemia- Primary documented in this encounter Care Teams Rebeamer Relationship Specialty Start Date End Date Dean Rivera MD [address] [place] [address] PCP - General 03/23/17 12/10/24 James Grijalva MD [address] [place] [address] PCP - General Internal Medicine 12/11/24 Dean Rivera MD [address] [place] [address] Historical LMR Provider 03/23/17 2 Uli Mcgraw MD [address] [place] [address] [email or web address] Historical LMR Provider 03/23/17 documented as of this encounter Additional Source Comments The information contained in this document represents components of the legal health record. It is not the complete legal health record.[facility]
--- OUTSIDE RECORDS SUMMARY | 2025-04-24 03:39 | XMS_ITS | Patient Health Record ---
Author Organization [facility] Address [address] [place] [address] Care Team Providers Care Manager Photography Name Role Phone MARRY, TANIA Primary Care Provider Matthew Romero [phone] Allergies Allergen (clinical drug ingredient) Drug/Non Drug Allergy documented on EMR Reaction Allergy Type Onset Date Status Tylenol/Codeine #3 Unknown Drug Allergy Active Reason For Referral No Information Medications Medication SIG (Take, Route, Frequency, Duration) Notes Start Date End Date Status Isosorbide Mononitrate ER 30 MG Tablet Extended Release 24 Hour 1 tablet in the morning Orally Once a day Active Aspir-81 81 MG Tablet Delayed Release 1 tablet Orally Once a day 01/14/2014 Active Atorvastatin Calcium 80 MG Tablet 1 tablet Orally Once a day Active ZyrTEC Active Brilinta 90 MG Tablet 1 tablet Orally Not-Taking/PRN Omeprazole 20 MG Capsule Delayed Release 1 capsule Orally twice a day; Duration: 90 Active Sulindac 150 MG Tablet 1 tablet with radha d Orally QD as needed Not-Taking/P RN Jardiance 10 MG Tablet 1 tablet Orally O nce a day Active amLODIPine Besylate 5 MG Tablet 1 tablet Orally Once a day Active Ezetimibe 10 MG Tablet 1 tablet Orally O nce a day Active Finasteride 5 MG Tablet 1 tablet Orally Once a day Active Immunizations Vaccine Route Administration Date Status Comme nts Influenza Unknown 03/05/2019 Administered Influenza Unknown 03/05/2025 Administered Social History Social History Drug/Alcohol: Social Info Question Answer Notes AUDIT-C (Standard) Did you have a drink containing alcohol in the past year? 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 Section Notes: Nonsmoker; no significant al cohol Nonsmoker; no significant al cohol Nonsmoker; no significant al cohol Nonsmoker; no significant al cohol Nonsmoker; no significant al cohol Problems Problem Type SNOMED Code ICD Code Onset Dates Problem Status W/U Status Risk Notes Problem Screening for malignant neoplasm of colon (880185268) Encounter for screening for malignant neoplasm of colon (Z12.11) Active confirmed Problem History of adenomatous polyp of colon (744878193) History of adenomatous polyp of colon (Z86.010) Active confirmed Problem Gastroesophageal reflux disease with esophagitis (169482799) Gastroesophageal reflux disease with esophagitis (K21.0) Active confirmed Problem 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 We will obtain clearance from his point of care specialist for the procedure as well. Beverly was [...] procedure. We will obtain clearance from his point of care specialist for the procedure as well. Beverly was [...] procedure. We will obtain clearance from his point of care specialist for the procedure as well. Beverly was [...] procedure. We will obtain clearance from his point of care specialist for the procedure as well. Beverly was [...] Next Appt Details Provider Name:Matthew Sanches , 05/19/2025 01:40:00 PM, [address] [place] [address] , [place], [place], [phone], Insurance Providers Payer Name Payer Address Payer Phone Subscriber Number Group Number Insured Name Patient Relationship to Insured Coverage Start Date Coverage End Date MEDICARE OF [facility] [address] [place] [id number] BEVERLY OROSCO Self - patient is the insured 4 [place] [employer] [address] [place] [id number] BEVERLY OROSCO Self - patient is the [...] removed in 02/2014 with s creening colonoscopy [place] in 06/2018 with placement of a single stent Surgical History Surgery Date(Month/Year) Right rotator cuff Left knee arthroscopy Lower back--spinal stenosis
--- OUTSIDE RECORDS SUMMARY | 2025-04-24 03:39 | XMS_ITS | Clinical Summary ---
Author Organization [facility] Address [address] [place] [phone] Phone Care Team Providers Care Media Operator Name Role Phone Uli Mcgraw MD Unavailable [phone] James Grijalva MD Primary Care Provid [...] 24 hr tabletIndicatio ns:Coronary artery disease involving wilton coronary artery of wilton heart without angina pectoris TAKE 1 TABLET(30 [...] present therapy. Coronary artery disease invo lving wilton coronary artery of wilton heart without angina pectoris 04/11/2017 Overview (09/24/2019): [...] cardiac cath without resulting stent (07/2021) [place] [facility] [place]. Recommendations are to: Continue [...] metoprolol. He will begin cardiac rehab at [facility]. I will have him return in [...] Type Department Care Team Description 03/28/2025 Refill [facility] [address], [address] [place] [address] Diaz Sorto MD Medication Refill 03/03/2025 9:00 AM EDT Office Visit [facility] [address], [address] [place] [address] Elvi Espitia DNP Coronary artery disease involving wilton coronary artery of wilton heart without angina pectoris (Primary Dx); Essential hypertension 02/18/2025 2:30 PM EDT Office Visit [facility] [address], [address] [place] [address] Hill Navarrete MD Wheezing (Primary Dx); Mild intermittent asthma without complication 01/27/2025 Telephone [facility] [address], [address] [place] [address] Elvi Espitia DNP 01/27/2025 Orders Only [facility] [address], [address] [place] [address] Elvi Espitia DNP 01/23/2025 9:30 AM EDT Office Visit [facility] [address], [address] [place] [address] Elvi Espitia DNP Essential hypertension (Primary Dx); Coronary artery disease involving wilton coronary artery of wilton heart without angina pectoris 01/23/2025 Telephone [facility] [address], [address] [place] [address] Elvi Espitia DNP from Last 3 Months [...] Description 09/01/2025 9:00 AM EDT Office Visit [facility] [address] [place] [address] [address]rd Floor, [address] [place] [address] Diaz Sorto MD [address] [facility], [address] [place] [address] [email or web address] Health Maintenance Due Date Last Done Comments Adult Td,Tdap Booster 1950 DEPRESSION SCREENING 1961 HEPATITIS C SCREENING 1967 ZOSTER VACCINES (1 of 2) 1999 PNEUMOCOCCAL VACCINES (50+ years) (2 of 2 - PCV20 or PCV21) 02/27/2019 02/27/2018 RSV VACCINE (1 - 1-dose [...] on patient's age to complete this topic IPV VACCINES Aged Out No longer eligi ble based on patient's age to complete this topic MENINGOCOCCAL VACCINES (ACWY) Aged Out No longer eligible based on patient's age to complete this topic MENINGOCOCCAL VACCINES (B) Aged Out N o longer eligible based on patient's age to complete this topic Medical Devices Not on file Insurance MEDICARE PART A & B [place] MED[place] SUPP[place] MEDICARE PART A & [place] MEDICARE PART A & B [place] SUPPLE[place] MEDICARE PART A & B [place] SUPPLE[place] MEDICARE PART A & B [place] SUPPLE[place] MEDICARE PART A & B [place] SUPPLE[place] MEDICARE PART A & B [place]PP[place] ARJUN RUSH [id number] MEDICARE PART A & B [place] SU[place]LE[place] MEDICARE PART A & B [place] MED[place] SUPPLE[place] Care Teams Media Operator Relationship Specialty Start Date End Date James Grijalva MD [address] [place] [id number] PCP - General Internal Medicine 12/11/24 Uli Mcgraw MD [address] [place] [phone] [email or web address] LMR Provider 03/23/17 Additional Source Comments The information contained in this document represents components of the legal health record. It is not the complete legal health record.[facility]
--- NOTE | 2025-05-15 10:40 | HO.ANESPROP2 ---
Documented by User: Shana Ferguson NP 05/15/25 11:46 HPI - Anesthesia Eval Consult details Narrative: 75yo M for Upper Endoscopy and Colonoscopy Cardiac optimized. Follows [facility] for CAD s/p stent x 3. Per 02/2025 office visit, complex 2 vessel disease and considered too high risk for PCI. Will consider CABG if any breakthrough anginal symptoms. Also, SOB improved with asthma treatment. [facility] Active Problems Active Problems: All Active Problems Glucose found in urine on examination (Acute) Prediabetes (Acute) Renal glycosuria (Acute) Hypertension (Acute) Renal cyst (Acute) Enlarged prostate (Acute) Weak urinary stream (Acute) Elevated PSA (Acute) Past Medical History Medical History Hiatal hernia Tubular adenoma Myocardial infarction Glucose found in urine on examination Prediabetes Renal glycosuria CAD (coronary artery disease) GERD (gastroesophageal reflux disease) High cholesterol Hypertension Arthritis Family History Family History Father No problems noted. Mother No problems noted. Surgical History Surgical History History of coronary artery stent placement (~06/2018) History of back surgery Hx of arthroscopy of left knee Hx of repair of right rotator cuff History of esophagogastroduodenoscopy (EGD) (~02/10/14) History of colonoscopy (~02/10/14) Social History Social History Housing: House Alcohol intake: current Alcohol intake frequency: holidays/special occasions only Patient Tobacco Use Status: Never used Tobacco Use of substances other than those prescribed or required for medical reasons: No Advance Directives: No Advance Directives Information Provided: Yes service: No Current occupational status: retired Cognitive needs: No Hearing needs: No Vision needs: Yes (rx glasses) Meds Allergies Allergy/AdvReac Type Severity Reaction Status Date / Time acetaminophen (From Tylenol Allergy Mild Unknown Verified 04/01/25 15:11 PM) diphenhydramine (From Allergy Mild Unknown Verified 04/01/25 15:11 Tylenol PM) Home Medications ?Medication ?Instructions ?Recorded ?Confirmed ?Last Taken ?Type atorvastatin 80 mg tablet 80 mg PO DAILY 08/29/22 05/15/25 Unknown History isosorbide mononitrate 30 mg 30 mg PO DAILY 08/29/22 05/15/25 Unknown History tablet,extended release 24 hr aspirin 81 mg tablet,delayed 81 mg PO DAILY 08/30/22 05/15/25 Unknown History release ezetimibe 10 mg tablet 10 mg PO DAILY 02/14/24 05/15/25 Unknown History amlodipine 5 mg tablet 5 mg PO DAILY 11/26/24 05/15/25 Unknown History cetirizine 10 mg tablet (Zyrtec) 10 mg PO DAILY PRN Allergy Symptoms 05/15/25 05/15/25 Unknown History empagliflozin 10 mg tablet 10 mg PO DAILY 05/15/25 05/19/25 05/15/25 History (Jardiance) finasteride 5 mg tablet 5 mg PO DAILY 05/15/25 05/15/25 Unknown History Exam Pertinent Lab Results Pertinent Lab Results: Laboratory Tests 02/04/25 09:00 WBC 5.2 Hgb 14.3 Hct 41.4 L Plt Count 150 L Sodium 142 Potassium 4.2 Chloride 109 H Carbon Dioxide 25 BUN 24 H Creatinine 1.12 Narrative Narrative: EKG 01/2025 NSR slow @ 55 ECHO 12/2024 Assessment and Plan Assessment Anesthesia Assessment: Chart Reviewed Documented by User: Mireya Rhodes MD 05/19/25 11:40 [facility] Past Medical History Medical History Hiatal hernia Tubular adenoma Myocardial infarction Glucose found in urine on examination Prediabetes Renal glycosuria CAD (coronary artery disease) GERD (gastroesophageal reflux disease) High cholesterol Hypertension Arthritis Family History Family History Father No problems noted. Mother No problems noted. Family history of problems with anesthesia: No Surgical History Surgical History History of coronary artery stent placement (~06/2018) History of back surgery Hx of arthroscopy of left knee Hx of repair of right rotator cuff History of esophagogastroduodenoscopy (EGD) (~02/10/14) History of colonoscopy (~02/10/14) History of Problems with Anesthesia: No Social History Social History Housing: House Alcohol intake: current Alcohol intake frequency: holidays/special occasions only Patient Tobacco Use Status: Never used Tobacco Use of substances other than those prescribed or required for medical reasons: No Advance Directives: No Advance Directives Information Provided: Yes service: No Current occupational status: retired Cognitive needs: No Hearing needs: No Vision needs: Yes (rx glasses) Meds Allergies Allergy/AdvReac Type Severity Reaction Status Date / Time acetaminophen (From Tylenol Allergy Mild Unknown Verified 04/01/25 15:11 PM) diphenhydramine (From Allergy Mild Unknown Verified 04/01/25 15:11 Tylenol PM) Home Medications ?Medication ?Instructions ?Recorded ?Confirmed ?Last Taken ?Type atorvastatin 80 mg tablet 80 mg PO DAILY 08/29/22 05/15/25 Unknown History isosorbide mononitrate 30 mg 30 mg PO DAILY 08/29/22 05/15/25 Unknown History tablet,extended release 24 hr aspirin 81 mg tablet,delayed 81 mg PO DAILY 08/30/22 05/15/25 Unknown History release ezetimibe 10 mg tablet 10 mg PO DAILY 02/14/24 05/15/25 Unknown History amlodipine 5 mg tablet 5 mg PO DAILY 11/26/24 05/15/25 Unknown History cetirizine 10 mg tablet (Zyrtec) 10 mg PO DAILY PRN Allergy Symptoms 05/15/25 05/15/25 Unknown History empagliflozin 10 mg tablet 10 mg PO DAILY 05/15/25 05/19/25 05/15/25 History (Jardiance) finasteride 5 mg tablet 5 mg PO DAILY 05/15/25 05/15/25 Unknown History Exam Airway Mallampati Class: III TM Dist: <=3cm Neck ROM: Full Heart: rrr Lungs: cta Assessment and Plan Assessment Anesthesia Assessment: Anesthesia Plan Discussed Final Anesthetic Review Family History of Problems with Anesthesia: No History of Problems with Anesthesia: No NPO: Yes ASA Class: III Final Preanesthetic Review: No Changes in Pt Med Stat, Meds/Allgs Chart Reviewed, Consent Obtained/Reviewed and Anes Risks/Benef Reviewed Patient Risk: Intermediate Procedure Risk: Low Anesthetic Plan Anesthetic Plan: MAC: Disposition: Standard PACU
[2025-05-15 14:35] VITALS: BMI 30.1
[2025-05-19 11:11] VITALS: BMI 29.8
[2025-05-19 11:23] VITALS: BP 165/97; PULSE 61; RESP 16; TEMP 36.2; O2SAT 99
[2025-05-19] MEDS: Lactated Ringers 1,000 ML 100 ML IVCONT (11:25)
[2025-05-19 13:03] VITALS: BP 113/61; PULSE 66; RESP 18; TEMP 36.6; O2SAT 99
[2025-05-19 13:15] VITALS: BP 125/71; PULSE 53; RESP 18; O2SAT 95
--- NOTE | 2025-05-19 13:18 | P.BOP_ITS ---
Brief Operative Note Date of Service: 05/19/25 Pre-op diagnosis: Camejo's, Screening Post-op diagnosis: other (Hiatal hernia, Camejo's, Colon polyp) Procedure: EGD with bx and Cypher study, Colonoscopy to the cecum and TI with cold snare p olypectomy Surgeon: Matthew Sanches MD Anesthesia: MAC Was an Eligibility Worker used for this Procedure?: No Estimated blood loss (mL): 2.0 Pathology: other (A. EG Junction at 37cm B. Colon polyp at 60cm) Condition: stable Disposition: PACU
[2025-05-19 13:30] VITALS: BP 118/64; PULSE 53; RESP 18; TEMP 36.6; O2SAT 95
--- NOTE | 2025-05-19 14:35 | OP_ITS ---
DATE OF SERVICE: 05/19/2025 SURGEON: Matthew Sanches MD INDICATIONS: The patient presents for followup of gastroesophageal reflux, Camejo's esophagus, personal history of tubular adenoma of the colon, and colorectal cancer screening. Full consent has been obtained for both procedures, including risks of bleeding and perforation. PREOPERATIVE DIAGNOSIS: POSTOPERATIVE DIAGNOSIS: PROCEDURE PERFORMED: Esophagogastroduodenoscopy with biopsies and specimen sent for the Cypher study,, and colonoscopy to the cecum and terminal ileum with cold snare polypectomy. ESTIMATED BLOOD LOSS: COMPLICATIONS: ANESTHESIA: Monitored anesthesia care. ASSISTANTS: SPECIMENS: PREOPERATIVE DIAGNOSES: History of Camejo's esophagus and tubular adenoma of the colon. POSTOPERATIVE DIAGNOSES: History of Camejo's esophagus and tubular adenoma of the colon, small hiatal hernia, gastric polyps, colon polyp, diverticulosis, internal hemorrhoids. DESCRIPTION OF PROCEDURE: The patient was placed in the left lateral decubitus position. The Olympus video gastroscope was passed in the posterior oropharynx and upper esophagus under direct vision. The scope was passed slowly to the distal esophagus. The gastroesophageal junction appeared at 37 cm. There was some slight irregularity with small, less than 1 cm, areas of possible Camejo's mucosa. There was no evidence of any esophagitis nor any lesions. The scope entered the stomach. There was a small hiatal hernia. The scope was advanced to the pylorus and the duodenum was cannulated to the descending portion. The duodenum including the bulb appeared normal without mass or ulceration. The scope was withdrawn back in the stomach. The gastric antrum and body appeared normal with good peristalsis. The scope was retroflexed visualizing the proximal stomach carefully, which appeared normal, without mass nor ulcertaion. There were some hyperplastic appearing gastric polyps. These were not biopsied nor removed. The scope was straightened and withdrawn back to the esophagus. Biopsies were obtained at the EG junction at 37 cm. Proximal to that, the esophageal mucosa appeared normal. The scope was withdrawn from the patient. He was turned around for the colonoscopy. The digital rectal exam revealed no abnormalities. The Olympus video pediatric colonoscope was entered into the rectum and advanced easily to the cecum. Once in the cecum, I did identify a normal-appearing cecal pouch and normal-appearing ileocecal valve. The terminal ileum was cannulated and appeared normal. The scope was withdrawn back into the colon. The entire cecum and ileocecal valve appeared normal. The scope was slowly withdrawn assessing all mucosal surfaces carefully. Preparation was very good but did require some irrigation and suctioning. At 60 cm was an approximately 6 to 8 mm grossly adenomatous polyp, which was removed by cold snare polypectomy and recovered by suction. The polypectomy site appeared clean, without any sign of residual polyp nor significant bleeding. I did not visualize any other polyps, colitis, nor angiodysplasia. There was a mild amount of sigmoid diverticulosis. In the rectum the scope was retroflexed visualizing internal hemorrhoids but no other pathology. The rectal mucosa appeared normal. The scope was straightened and withdrawn from the patient. He tolerated the procedures well and was returned to the recovery area in stable condition. IMPRESSION: 1. Colon polyp. 2. Diverticulosis. 3. Internal hemorrhoids. 4. Hiatal hernia, history of Camejo's esophagus--specimens sent for routine pathology and the Cypher study PLAN: The results of the biopsies will be checked. He was advised to resume his aspirin in the next 24 to 48 hours. He was advised not to use any NSAIDs for at least a week. He will continue his daily omeprazole. Given these relatively minimal findings and his age, I do not think he needsany further upper endoscopies or colonoscopies from a screening standpoint. He was advised to call me sooner as needed. This has been discussed with his . MD JOSE Montano/JENARO / [id number] MTDD
== END 2025-05-19 14:13 | disposition home or self-care (01) ==
PROVIDERS: PCP Internal Medicine; Visit Provider Internal Medicine
PROC: (CPT 45385; principal; 2025-05-19 11:20)
DX: Z12.11 Encounter for screening for malignant neoplasm of colon (principal); K22.10 Ulcer of esophagus without bleeding; K21.00 Gastro-esophageal reflux disease with esophagitis, without bleeding; K31.7 Polyp of stomach and duodenum; K57.30 Diverticulosis of large intestine without perforation or abscess without bleeding; Z87.19 Personal history of other diseases of the digestive system; D12.3 Benign neoplasm of transverse colon
CPT/HCPCS: 45385; 88305; 88313; J1100; J1596; J2003; J2704

== ENCOUNTER 2025-05-28 13:16 | Outpatient (AMB) | payer MEDICARE, OTHER, SELFPAY ==
--- OUTSIDE RECORDS SUMMARY | 2025-05-19 06:30 | XMS_ITS ---
Author Organization [facility] Address [address] [place] [id number] Care Team Providers Care Dietary Supervisor Name Role Phone TANIA TUTTLE Primary Care Provider Matthew Romero [phone] REASON FOR VISIT gerd,ledesma's w/ esophgeal ulceration,screening,hx polyps Encounters Encounter Location Date Provider Diagnosis [facility] Outpatient [address] [place] [phone] 05/19/2025 Matthew Sanches Plan Of Treatment No Information Progress Notes * BEVERLY OROSCO JrDOB: (75 yo M)Acc No.[id number]:05/19/2025 EGD and COL/MAC Patient: Basia BEVERLY JOHNS Jr Provider: Joanne Sanches MD :1950 A ge:75 Y S ex:Male Date:05/19/2025 Address:[address] [place] [id number] Pcp:TANIA TUTTLE Subjective: * Chief Complaints: * G erd,ledesma's w/ esophgeal ulceration,screening,hx polyps Billing Information: * Procedure Codes: * The named appointment provid er may or may not be the originator of this progress note, and it is not deemed complete until electronically signed by the appointment provider. Sign off status: Pending * Provider: Joanne Sanches MD Date: 1 07/20/2024 Generated for Lauren brantley/Willam/Heriberto on: 07/29/2024 01:17 PM EST
--- NOTE | 2025-05-28 13:17 | A.OFFVIS_ITS ---
Intake Visit Reasons: 1y/PSA/UA Intake Note: Patient is present for 1Y/PSA/UA Urology Medication:FINASTERIDE Antibiotic Allergy:NONE Blood Thinner:ASPIRIN [employer]rication Department Supervisor Required: No Allergies acetaminophen (From Tylenol PM) Allergy (Mild, Verified 05/31/25 08:37) Unknown diphenhydramine (From Tylenol PM) Allergy (Mild, Verified 05/31/25 08:37) Unknown Medication List - Last Reconciled 05/31/25 by FIDEL Gottlieb- amlodipine 5 mg PO DAILY aspirin 81 mg PO DAILY atorvastatin 80 mg PO DAILY cetirizine (Zyrtec) 10 mg PO DAILY PRN empagliflozin (Jardiance) 10 mg PO DAILY ezetimibe 10 mg PO DAILY finasteride 5 mg PO DAILY isosorbide mononitrate ER 30 mg PO DAILY omeprazole 20 mg PO BID HPI Comments Details: Wyatt is a pleasant 75-year-old male patient of Dr. Grijalva. He has a past medical history of coronary artery disease, GERD, hypercholesteremia, hypertension, and arthritis. He is being followed up on today via telehealth for his elevated PSA. In discussion with the patient today reports to be doing and feeling well. He reports compliance with finasteride as prescribed. He denies having had any bothersome urinary issues or concerns since since last office visit here. Most recent PSA results reviewed with the patient today as noted and trended below: PSA: 07/28 4.3, 09/25 4.1 Percent free 24, 02/25 2.1, 02/26 1.3, 02/27 1.4 Previous workup has included retroperitoneal ultrasound 08/25 that noted bilateral kidneys with no renal calculi or hydronephrosis. Bilateral renal cysts. The bladder is well distended and normal. Bilateral ureteral jets are demonstrated. Pre void bladder volume is 500 mL. Postvoid bladder volume is 40 mL. Prostate volume 44 mL. He denies urinary urgency, urinary frequency, incontinence, nocturia, hematuria, dysuria, foul smelling urine, changes to urinary stream, flank pain, fever, and or chills. He is happy with his current voiding parameters. 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 He discusses his recent colonoscopy. He otherwise offers no other issues or concerns at this time. [facility] Medical History Hiatal hernia Tubular adenoma Myocardial infarction Glucose found in urine on examination Prediabetes Renal glycosuria CAD (coronary artery disease) GERD (gastroesophageal reflux disease) High cholesterol Hypertension Arthritis Surgical History (Updated 05/23/25 @ 13:50 by James Grijalva MD) History of coronary artery stent placement (~06/2018) History of back surgery Hx of arthroscopy of left knee Hx of repair of right rotator cuff History of esophagogastroduodenoscopy (EGD) (~02/10/14) History of colonoscopy (05/20/25) Family History Father No problems noted. Mother No problems noted. Social History Housing: House Alcohol intake: current Alcohol intake frequency: holidays/special occasions only Patient Tobacco Use Status: Never used Tobacco service: No Current occupational status: retired Cognitive needs: No Hearing needs: No Vision needs: Yes (rx glasses) Review of Systems Const Reports no additional complaints Eyes Reports no additional complaints ENT Reports no additional complaints Card Reports as per HPI Resp Reports no additional complaints GI Reports as per HPI Reports as per HPI Musc Reports as per HPI Neuro Reports no additional complaints Psych Reports no additional complaints Endo Reports no additional complaints Kash/Lymph Reports no additional complaints Aller/Immun Reports no additional complaints Physical Exam Const General: cooperative Orientation/consciousness: patient oriented x3 Resp Effort & Inspection: able to speak in complete sentences Neuro General: patient oriented x3 Psych Speech and movement: Clear speech present Attitude: cooperative Thought content: Normal thought content present Insight: Fair insight present (Psych) Judgement: Fair judgement present (Psych) Telehealth Telehealth Telehealth Platform: Telephone Location of provider rendering services: practice address Location of patient: address on file Patient Identification confirmed using: Name, : Yes Telehealth method: voice only Patient verbally consented to treatment: Yes Patient verbally consented to billing insurance company: Yes Patient informed of any privacy concerns related to visit: Yes Minutes spent on Phone/Video with Pt.: 15 Assessment & Plan Assessment & Plan (1) Elevated PSA: Code(s): R97.20 - Elevated prostate specific antigen [PSA] Category: Medical (2) Weak urinary stream: Code(s): R39.12 - Poor urinary stream Category: Medical (3) Enlarged prostate: Code(s): N40.0 - Benign prostatic hyperplasia without lower urinary tract symptoms Category: Medical (4) Renal cyst: Code(s): N28.1 - Cyst of kidney, acquired Category: Medical Plan Most recent PSA results with the patient today; as noted above. He currently denies any bothersome urinary issues or concerns. He reports be happy with current voiding parameters. All questions were answered. Continue finasteride. Will continue with surveillance monitoring. Will obtain PSA in 1 year. Follow-up in 1 year with PSA and PVR; or sooner with any issues, concerns, and or questions. Orders: Orders Prostate Specific Antigen 1 Year N40.0 - Benign prostatic hyperplasia without lower urinary tract symptoms, R97.20 - Elevated prostate specific antigen [PSA] Patient Instructions: The patient had an opportunity to ask questions regarding the treatment plan. All questions were answered. Physical exam, labs, and imaging were discussed and reviewed in detail. As well as risks, benefits, and discussion of treatment choices. No major barriers to understanding were identified. The patient expressed understanding and agreement with the above treatment plan. The patient was made aware they should contact our office by phone for worsening of their current condition, the appearance of new symptoms, or with any questions or concerns. Compliance is encouraged with any medications and follow up testing that is ordered. It is a privilege to be allowed the opportunity to participate in? your urological care.? Again, if you have any questions or concerns If you have any questions or concerns please do not hesitate to contact me. The office is [phone]. This note is constructed using voice recognition software. While every effort montero s been made to ensure accuracy teacher [employer] errors may have been included. Yours sincerely, DEWAYNE Gottlieb Coding Level of Care Code Tele Est Pt Level 3 (65344) Add On Problem Visit Only Diagnoses Elevated PSA R97.20 Weak urinary stream R39.12 Enlarged prostate N40.0 Renal cyst N28.1
--- OUTSIDE RECORDS SUMMARY | 2025-05-28 13:17 | XMS_ITS | Encounter Summary ---
Author Organization [facility] Address [address] [place] [address] Phone Care Team Providers Care Donor Recruiter Name Role Phone Dean Rivera MD Primary Care Provider [phone] Uli Mcgraw MD Unavailable [phone] James Grijalva MD Primary Care Provid er Encounter Details Date Type Department Care Team (Late st Contact Info) Description 06/26/2024 Procedure Pass [facility] [address] [place] [address] Social History Tobacco Use Types Packs/Day Years [...] Description 09/01/2025 9:00 AM EDT Office Visit [facility] [address] [facility] 3rd Floor, [address] [place] [address] Diaz Sorto MD 22 [facility], [address] [address] [email or web address] documented as of this encounter Visit Diagnoses Not on filedocumented in this encounter Care Teams Donor Recruiter Relationship Specialty Start Date End Date Dean Rivera MD [address] [place] [address] PCP - General 03/23/17 12/10/24 James Grijalva MD [address] [place] [address] PCP - General Internal Medicine 12/11/24 Uli Mcgraw MD [address] [place] [address] [email or web address] Historical LMR Provider 03/23/17 documented as of this encounter Additional Source Comments The information contained in this document represents components of the legal health record. It is not the complete legal health record.[facility]
--- OUTSIDE RECORDS SUMMARY | 2025-05-28 13:18 | XMS_ITS | Encounter Summary ---
Author Organization [facility] Address [address] [place] [address] [address] [place] [address] Phone Care Team Providers Care Trouble Shooter Name Role Phone Dean Rivera MD Primary Care Provider [phone] Dean Rivera MD Unavailable Uli Mcgraw MD Unavailable [phone] James Grijalva MD Primary Care Provid er Encounter Details Date Type Department Care Team (Latest Contact Info) Description 04/07/2017 Transcribe Orders [facility] [address] [place] [address] Uli Mcgraw MD [address] [place] [address] [phone] [email or web address] Pure hypercholesterolemia (Primary Dx) Social History [...] Description 09/01/2025 9:00 AM EDT Office Visit [facility] [address] [place] [address] 3rd Floor, [address] [place], [place] [phone] Diaz Sorto MD 22 [facility], [address] [place] [address] [phone] [email or web address] documented as of this encounter Results * LFTs (hepatic panel) (04/07/2017 8:40 AM EDT) ALKALINE PHOSPHATASE 50 39 - 117 U/L [facility] TOTAL BILIRUBIN 0.5 0 - 1.2 mg/dL [facility] DIRECT BILIRUBIN <0.2 0 - 0.3 mg/dL [facility] Bilirubin (Indirect) NOT CALCULATED 0 - 1.5 mg/dL [facility] AST 25 0 - 37 U/L [facility] ALT 22 0 - 40 U/L [facility] TOTAL PROTEIN 6.6 6.5 - 8.0 g/dL [facility] ALBUMIN 4.2 3.9 - 4.8 g/dL [facility] GLOBULIN 2.4 1 - 4.8 g/dL [facility] A/G Ratio 1.75 1.00 - 4.80 RATIO [facility] Blood 04/07/2017 8:40 AM EDT 04/07/2017 8:42 AM EDT us Uli Mcgraw MD LAB BLOOD BKR ORDERABLES Edited Result - Final [facility] [address] [place] [address] * (ABNORMAL) Lipid panel (04/07/2017 8:40 AM EDT) HDL 46 mg/dL [facility] Comment: Interpretation: Risk Level Males Decreased >45 mg/dL Average 40-45 mg/dL Increased <40 mg/dL CHOLESTEROL 127 0 - 240 mg/dL [facility] TRIGLYCERIDES 88 30 - 160 mg/dL [facility] LDL 63 50 - 129 mg/dL [facility] Comment: LDL levels in terms of risk for coronary heart disease: <100 mg/dL: Optimal 100-129 mg/dL: Near or above optimal 130-159 mg/dL: Borderline high 160-189 mg/dL: High >190 mg/dL: Very High CARDIAC RISK RATIO 2.8(L) 3.4 - 5.0 [facility] Blood 04/07/2017 8:40 AM EDT 04/07/2017 8:42 AM EDT Uli Mcgraw MD LAB BLOOD BKR ORDERABLES Final Result Performing Organization Address [facility] Co de Phone Number [address] [address] * (ABNORMAL) Basic metabolic panel (04/07/2017 8:40 AM EDT) SODIUM 141 133 - 146 mmol/L [facility] CHLORIDE 104 96 - 108 mmol/L [facility] POTASSIUM 4.7 3.3 - 5.1 mmol/L [facility] CO2 27 21 - 35 mmol/L [facility] BUN 23(H) 6 - 19 mg/dL [facility] CREATININE 0.90 0.5 - 1.5 mg/dL [facility] GLUCOSE 101(H) 70 - 99 mg/dL [facility] CALCIUM 9.2 8.4 - 10.3 mg/dL [facility] EGFR >60 >60 mL/min/1.7 3m2 [facility] Comment:Abnormal if <60. If patient is -[place], multiply the result by 1.21. ANION GAP 15 10 - 20 mmol/L [facility] Blood 04/07/2017 8:40 AM EDT 04/07/2017 8:42 AM EDT Uli Mcgraw MD LAB BLOOD BKR ORDERABLES Final Result Performing Organization Address [facility] Co de Phone Number [address] [address] documented in this encounter Visit Diagnoses Diagnosis Pure hypercholesterolemia- Primary documented in this encounter Care Teams Trouble Shooter Relationship Specialty Start Date End Date Dean Rivera MD [address] [place] [address] PCP - General 03/23/17 12/10/24 James Grijalva MD [address] [place] [address] PCP - General Internal Medicine 12/11/24 Dean Rivera MD [address] [place] [address] Historical LMR Provider 03/23/17 2 Uli Mcgraw MD [address] [place] [address] [email or web address] Historical LMR Provider 03/23/17 documented as of this encounter Additional Source Comments The information contained in this document represents components of the legal health record. It is not the complete legal health record.[facility]
--- OUTSIDE RECORDS SUMMARY | 2025-05-28 13:18 | XMS_ITS | Clinical Summary ---
Author Organization [facility] Address [address] [place] [address] Phone Care Team Providers Care Casing Material Weigher Name Role Phone Uli Mcgraw MD Unavailable [phone] James Grijalva MD Primary Care Provid [...] HOUR PRIOR TO APPOINTMENT 04/13/20 24 Active isosorbide mononitrate (IMDUR) 30 MG 24 hr tabletIndicatio ns:Coronary artery disease involving miami coronary artery of miami heart without angina pectoris TAKE 1 TABLET(30 [...] DAILY 90 tablet 3 03/31/20 25 Active amLODIPine (NORVASC) 5 MG tablet TAKE 1 TABLET(5 MG) BY MOUTH DAILY 90 tablet 3 05/06/20 25 Active amLODIPine (NORVASC) 5 MG tablet Take 1 tablet (5 mg total) by mouth daily. 90 tablet 3 06/26/19 25 025 Discontinued Active Problems Problem Noted Date [...] present therapy. Coronary artery disease invo lving miami coronary artery of miami heart without angina pectoris 04/11/2017 Overview (09/24/2019): [...] cardiac cath without resulting stent (07/2021) at [facility] by [facility]. Church. Recommendations are to: Continue [...] metoprolol. He will begin cardiac rehab at [facility]. I will have him return in [...] Encounters Date Type Department Care Team Description 05/06/2025 Refill [facility] [address] Floor, [address] [place] [address] Diaz Sorto MD Medication Refill 04/29/2025 Telephone [facility] [address] Floor, [address] [place] [address] Elvi Espitia DNP 03/28/2025 Refill [facility] [address] 3rd Floor, [address] [place] [address] Diaz Sorto MD Medication Refill 03/03/2025 9:00 AM EDT Office Visit [facility] [address] Floor, [address] [place] [address] Elvi Espitia DNP Coronary artery disease involving miami coronary artery of miami heart without angina pectoris (Primary Dx); Essential hypertension from Last 3 Months Immunizations Immunization Administration [...] Description 09/01/2025 9:00 AM EDT Office Visit [facility] [address] [place] [address] 3rd Floor, [address] [place], [place] [phone] Diaz Sorto MD 22 [facility], [address] [address] [email or web address] Health Maintenance Due Date Last Done Comments [...] file Insurance MEDICARE PART A & B [place] MEDICARE SUPPLEMENT [facility] Address: [facility] [address] [place] [address] MEDICARE PART A & B [place] MEDICARE SUPPLEMENT MEDICARE PART A & B [place] MED[employer]ARE SUPPLEMENT MEDICARE PART A & B [place] MED[employer]ARE SUPPLEMENT ARJUN RUSH [id number] MEDICARE PART A & B [place] MED[employer]ARE SUPPLEMENT MEDICARE PART A & B [place] MED[employer]ARE SUPPLEMENT MEDICARE PART A & B [place] MED[employer]ARE SUPPLEMENT MEDICARE PART A & B [place] [employer] MEDICARE PART A & B [place] [employer] SU[place] Care Teams Casing Material Weigher Relationship Specialty Start Date End Date James Grijalva MD [address] [place] [address] PCP - General Internal Medicine 12/11/24 Uli Mcgraw MD [address] [place] [address] 1 [place] [address] [email or web address] Historical LMR Provider 03/23/17 Additional Source Comments The information contained in this document represents components of the legal health record. It is not the complete legal health record.[facility]
--- OUTSIDE RECORDS SUMMARY | 2025-05-28 13:18 | XMS_ITS | Patient Health Record ---
Author Organization [facility] Address [address] [place] [address] Care Team Providers Care Director Hr Communications Name Role Phone MARRY, TANIA Primary Care Provider Matthew Romero [phone] Allergies Allergen (clinical drug ingredient) Drug/Non Drug Allergy documented on EMR Reaction Allergy Type Onset Date Status Tylenol/Codeine #3 Unknown Drug Allergy Active Results Component Value Reference Range Notes Pathology (Not yet reviewed by provider) Interpretation: Performing Lab:[facility], [address] [place] [id number] Notes/Report: Reason For Referral No Information Medications Medication [...] Problem Screening for malignant neoplasm of colon (612030376) Encounter for screening for malignant neoplasm of colon (Z12.11) Active confirmed Problem History of adenomatous polyp of colon (973042001) History of adenomatous polyp of colon (Z86.010) Active confirmed Problem Gastroesophageal reflux disease with esophagitis (392787343) Gastroesophageal reflux disease with esophagitis (K21.0) Active confirmed 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 We will obtain clearance from his gauge inspector for the procedure as well. Beverly was [...] procedure. We will obtain clearance from his gauge inspector for the procedure as well. Beverly was [...] procedure. We will obtain clearance from his gauge inspector for the procedure as well. Beverly was [...] procedure. We will obtain clearance from his gauge inspector for the procedure as well. Beverly was comfortable with this plan. Thank you again for allowing me to participate in Beverly's care. I shall continue to keep you advised of his progress. Plan Of Treatment Pending Test Test Name Order Date UPPER GI ENDOSCOPY 03/07/2025 COLONOSCOPY 03/07/2025 Pathology 05/19/2025 Future Test Test Name Order Date UPPER GI ENDOSCOPY 01/14/2014 COLONOSCOPY 01/14/2014 UPPER GI ENDOSCOPY 04/12/2019 COLONOSCOPY 04/12/2019 Insurance Providers Payer Name Payer Address Payer Phone Subscriber Number Group Number Insured Name Patient Relationship to Insured Coverage Start Date Coverage End Date MEDICARE OF [place] [address] [place] [address] [id number] BEVERLY OROSCO Self - patient is the insured 4 [place] [employer] [address] ARJUN RUSH [id number] BEVERLY OROSCO Self - patient is the insured Medical (General) History Medical History History ICD Code Denies DM,CVA,Lung disease,renal disease Coronary artery disease- 2 s tents placed in 2004; then a 3rd stent placed in approx 2018 Hypertension Negative screening colonoscopy in 01/[address] Longoria Hyperlipidemia GERD- EGD in 02/2014-erosive esophagitis, small area of Camejo's without dysplasia, small HH Tubular adenoma removed in 02/2014 with s creening colonoscopy ID in 06/2018 with placement of a single stent Surgical History Surgery Date(Month/Year) Right rotator cuff Left knee arthroscopy Lower back--spinal stenosis
--- OUTSIDE RECORDS SUMMARY | 2025-05-28 13:18 | XMS_ITS | Encounter Summary ---
Author Organization [facility] Address [address] [place] [address] [place] [address] Phone Care Team Providers Care Automobile Engine Assembler Name Role Phone Dean Rivera MD Primary Care Provider [phone] Uli Mcgraw MD Unavailable [phone] James Grijalva MD Primary Care Provid er Encounter Details Date Type Department Care Team (Late st Contact Info) Description 07/22/2021 Procedure Pass [facility] [address] [place] [address] [place], [place] [phone] Social History Tobacco Use Types Packs/Day Years [...] Description 09/01/2025 9:00 AM EDT Office Visit [facility] [address] Floor, [address] [place], [place] [phone] Diaz Sorto MD 22 [facility], [address] [phone] documented as of this encounter Visit Diagnoses Not on filedocumented in this encounter Care Teams Automobile Engine Assembler Relationship Specialty Start Date End Date Dean Rivera MD [address] [place] [address] PCP - General 03/23/17 12/10/24 James Grijalva MD [address] [place] [address] PCP - General Internal Medicine 12/11/24 Uli Mcgraw MD [address] [address] [email or web address] Historical LMR Provider 03/23/17 documented as of this encounter Additional Source Comments The information contained in this document represents components of the legal health record. It is not the complete legal health record.[facility]
== END 2025-05-28 14:15 | disposition home or self-care (01) ==
PROVIDERS: PCP Internal Medicine; Visit Provider Nurse Practitioner Family
DX: R97.20 Elevated prostate specific antigen [PSA] (principal); R39.12 Poor urinary stream; N40.0 Benign prostatic hyperplasia without lower urinary tract symptoms; N28.1 Cyst of kidney, acquired
CPT/HCPCS: 99213; G2211